=== PATIENT | female | born 1995 | race Caucasian/White ===

== ENCOUNTER 2022-12-28 08:54 | Outpatient (OUT) | payer OTHER, SELFPAY | END 2022-12-28 08:55 | disposition home or self-care (01) | LOC: PST 08:59 | PROVIDERS: Visit Provider Obstetrics & Gynecology | DX: Z01.818 Encounter for other preprocedural examination (principal); N92.0 Excessive and frequent menstruation with regular cycle; N93.9 Abnormal uterine and vaginal bleeding, unspecified; R10.2 Pelvic and perineal pain ==

== ENCOUNTER 2023-01-06 08:17 | Day surgery (SDC) | payer OTHER, SELFPAY ==
[2022-12-28 09:27] VITALS: BP 99/67; PULSE 72; RESP 20; TEMP 36.4; O2SAT 100; BMI 43.2
[2023-01-06] VITALS (8 sets, daily range): BP systolic 111–143; BP diastolic 68–83; PULSE 51–97; RESP 10–18; TEMP 36–36.3; O2SAT 95–100
[2023-01-06 08:50] LABS: Basophils Percent Auto 0.3 % (0.2-2.0); Eosinophils Percent Auto 0.4 % (0.9-7.0); Hematocrit 36.9 % (36.0-48.0); Hemoglobin 11.5 g/dL (12.0-16.0); Immature Granulocytes Abs Auto 0.02 10^3/uL (0.00-0.03); Immature Granulocytes Pct Auto 0.3 % (0.0-0.5); Lymphocytes Absolute Auto 2.1 10^3/uL (1.2-3.8); Lymphocytes Percent Auto 27.9 % (20.5-60.0); Mean Corpuscular HGB Conc 31.2 g/dL (29.9-35.2); Mean Corpuscular Hemoglobin 27.3 pg (26.7-34.0); Mean Corpuscular Volume 87.6 fL (81.0-99.0); Mean Platelet Volume 11.5 fL (9.5-13.5); Monocytes Absolute Auto 0.6 10^3/uL (0.3-0.8); Monocytes Percent Auto 7.6 % (1.7-12.0); Neutrophils Absolute Auto 4.8 10^3/uL (1.4-6.5); Neutrophils Percent Auto 63.5 % (43.0-75.0); Platelet Count 204 10^3/uL (150-450); Red Blood Count 4.21 10^6/uL (4.20-5.40); Red Cell Distribution Width 13.8 % (11.0-15.0); White Blood Count 7.5 10^3/uL (4.0-11.0)
[2023-01-06] MEDS: LACTATED RINGER'S SOLUTION 1,000 ML 50 ML IV (08:52)
[2023-01-06 08:54] LABS: HCG Quantitative <1 mIU/mL
--- NOTE | 2023-01-06 12:42 | PM.ONB ---
Brief Operative Note Date of procedure: 01/06/23 Pre-op diagnosis: menorrhagia Post-op diagnosis: same as pre-op Procedure: NAME OF PROCEDURE:[ yessi endometrial ablation with hysteroscopy] PROCEDURE: The patient was taken back to the OR where she was prepped and draped in the normal sterile fashion after being placed in the dorsal lithotomy position, after being placed under general anesthesia without difficulty. The anterior lip was grasped with a single tooth tenaculum. The patient was then gently sounds. The patient was gently sounded using Hegar dilators and the hysteroscope was passed through the cervix into the uterus where both ostia were seen. No gross evidence of polyps, fibroids or malignancy. A weighted speculum was placed in the patient?s vagina, the anterior tip of the cervix was identified and grasped with a single tooth tenaculum. The patient was gently sounded to roughly 10 cm. The cervical length was noted to be 5 cm. The Yessi ablation apparatus was set to approximately 5 in length. This was placed in through the cervix and into the uterus. After the seal was tested, at that time the total ablation of 120 seconds was performed with the Yessi without difficulty. All instruments were removed from the vagina. Anesthesia: ABEBA Surgeon: Jonah Roque Estimated blood loss (mL): 5 Pathology: none sent Condition: stable Disposition: PACU
== END 2023-01-06 13:05 | disposition home or self-care (01) ==
PROVIDERS: Visit Provider Obstetrics & Gynecology
PROC: (CPT 952; principal; 2023-01-06 10:25)
DX: N92.0 Excessive and frequent menstruation with regular cycle (principal); N93.9 Abnormal uterine and vaginal bleeding, unspecified; R10.2 Pelvic and perineal pain; F41.9 Anxiety disorder, unspecified; F31.89 Other bipolar disorder; E66.01 Morbid (severe) obesity due to excess calories; Z68.41 Body mass index [BMI] 40.0-44.9, adult
CPT/HCPCS: 58563; 36415; 84702; 85025; J2704

== ENCOUNTER 2023-06-21 19:44 | Outpatient (REF) | payer OTHER, SELFPAY ==
[2023-06-26 14:12] LABS: Age Gdln ACOG Testing Note (.); IGP, rfx Aptima HPV ASCU Note (.)
== END 2023-06-21 19:45 | disposition home or self-care (01) ==
LOC: LAB 19:44
PROVIDERS: Visit Provider Physician Assistant
DX: Z01.419 Encounter for gynecological examination (general) (routine) without abnormal findings (principal)
CPT/HCPCS: G0145

== ENCOUNTER 2023-08-03 09:41 | Outpatient (OUT) | payer OTHER, SELFPAY ==
--- NOTE | 2023-08-03 10:25 | P.GSHP_ITS ---
History of Present Illness History of Present Illness Chief complaint: menorrhagia, pelvic pain Narrative: He presents for preadmission testing. The patient reports heavy painful periods with abdominal pain. The patient states she had an ablation done in January 2023 with no relief of her symptoms area she denies nausea, vomiting, fever, dysuria, or any other complaints. Review of Systems ROS Narrative REVIEW OF SYSTEMS: Negative except as stated in HPI, ten or more systems reviewed. Constitutional: No fever , chills, weakness ENT: No sore throat or epistaxis Cardiovascular: No edema, chest pain, palpitations, or activity intolerance Respiratory: No shortness of breath, cough, or wheezing Musculoskeletal: No joint pain or swelling Genitourinary: No dysuria or hematuria Neurological: No numbness, tingling, weakness, or headache Psychiatric: No mood changes [facility] Medical History (Updated 08/03/23 @ 10:28 by Carlene Goel NP) History of admission to inpatient psychiatry department (~07/2023) ?Z86.59 - Personal history of other mental and behavioral disorders (ICD-10) Dysmenorrhea ?N94.6 - Dysmenorrhea, unspecified (ICD-10) Dyspareunia Pelvic pain ?R10.2 - Pelvic and perineal pain (ICD-10) Menorrhagia ?N92.0 - Excessive and frequent menstruation with regular cycle (ICD-10) Rh negative status during ?O26.899 - Other specified related conditions, unspecified trimester (ICD-10) ?Z67.91 - Unspecified blood type, rh negative (ICD-10) Anemia ?D64.9 - Anemia, unspecified (ICD-10) Panic attacks ?F41.0 - Panic disorder [episodic paroxysmal anxiety] (ICD-10) PTSD (post-traumatic stress disorder) ?F43.10 - Post-traumatic stress disorder, unspecified (ICD-10) Insomnia ?G47.00 - Insomnia, unspecified (ICD-10) Bipolar disorder ?F31.9 - Bipolar disorder, unspecified (ICD-10) Depression ?F32.A - Depression, unspecified (ICD-10) Anxiety ?F41.9 - Anxiety disorder, unspecified (ICD-10) Migraine ?G43.909 - Migraine, unspecified, not intractable, without status migrainosus (ICD-10) Closed head injury ?S09.90XA - Unspecified injury of head, initial encounter (ICD-10) Seizures ?R56.9 - Unspecified convulsions (ICD-10) Surgical History (Updated 08/03/23 @ 10:08 by Carlene Goel NP) History of hysteroscopy (01/06/23) ?Z98.890 - Other specified postprocedural states (ICD-10) History of wisdom tooth extraction ?K08.409 - Partial loss of teeth, unspecified cause, unspecified class (ICD- 10) History of tonsillectomy ?Z90.89 - Acquired absence of other organs (ICD-10) History of tubal ligation ?Z98.51 - Tubal ligation status (ICD-10) Family History (Updated 12/28/22 @ 09:22 by Carlene Goel NP) Other Family history of breast cancer Family history of colon cancer Family history of diabetes mellitus Family history of heart disease Family history of hypertension Family history of myocardial infarction Family history of seizures Family history of stroke Social History (Updated 08/03/23 @ 10:11 by Carlene Goel NP) Within the past year, how often did you have a drink containing alcohol: monthly or less Smoking status: Former smoker Non-prescribed substance use: denies use Highest level of school completed/degree received: high school graduate Meds Home Medications and Allergies Home Medications ?Medication ?Instructions ?Recorded ?Confirmed ?Type desvenlafaxine succinate 25 mg 25 mg PO Q24H 08/03/23 08/03/23 History tablet,extended release 24 hr valacyclovir 500 mg tablet 500 mg PO DAILY 08/03/23 08/03/23 History Allergies Allergy/AdvReac Type Severity Reaction Status Date / Time No Known Drug Allergies Allergy Verified 12/28/22 09:14 Exam Narrative Exam Narrative: Constitutional: Awake, alert, comfortable, well-appearing, nontoxic, interactive, vital signs as charted Head: Normocephalic, atraumatic Neck: Supple, normal appearance, normal range of motion, no meningeal signs, no lymphadenopathy Respiratory: No respiratory distress, breath sounds clear Cardiovascular: Regular rate and rhythm, strong and regular heart tones Abdomen: Nontender, normal bowel sounds, soft, no CVA tenderness Musculoskeletal: Normal gait, no swelling or edema Skin: No rashes or induration, no lesions, only visible skin inspected Neuro: No neurological deficits, normal sensation Psychiatric: Oriented ?3, normal affect Assessment and Plan Assessment and Plan (1) Menorrhagia: (2) Pelvic pain: (3) Dyspareunia: (4) Dysmenorrhea: Plan Robot assisted laparoscopic hysterectomy, possible exploratory laparotomy, possible bilateral salpingo-oophorectomy, possible cystoscopy scheduled with Dr. Roque 08/28/2023.
[2023-08-03 10:33] LABS: Basophils Percent Auto 0.5 % (0.2-2.0); Eosinophils Absolute Auto 0.1 10^3/uL (0.0-0.7); Eosinophils Percent Auto 0.8 % (0.9-7.0); Hematocrit 38.7 % (36.0-48.0); Hemoglobin 12.2 g/dL (12.0-16.0); Immature Granulocytes Abs Auto 0.01 10^3/uL (0.00-0.03); Immature Granulocytes Pct Auto 0.2 % (0.0-0.5); Lymphocytes Absolute Auto 1.9 10^3/uL (1.2-3.8); Lymphocytes Percent Auto 29.1 % (20.5-60.0); Mean Corpuscular HGB Conc 31.5 g/dL (29.9-35.2); Mean Platelet Volume 11.5 fL (9.5-13.5); Monocytes Absolute Auto 0.5 10^3/uL (0.3-0.8); Neutrophils Absolute Auto 4.1 10^3/uL (1.4-6.5); Neutrophils Percent Auto 62.4 % (43.0-75.0); Platelet Count 217 10^3/uL (150-450); Red Blood Count 4.35 10^6/uL (4.20-5.40); Red Cell Distribution Width 12.8 % (11.0-15.0); White Blood Count 6.6 10^3/uL (4.0-11.0)
[2023-08-03 10:42] LABS: INR 1.03; Partial Thromboplastin Time 29.5 sec (22.3-36.2); Prothrombin Time 10.9 sec (9.0-11.6)
[2023-08-03 11:57] LABS: Alanine Aminotransferase 22 U/L (14-59); Albumin Level 3.9 g/dL (3.4-5.0); Alkaline Phosphatase 83 U/L (46-116); Anion Gap 13.5; Aspartate Amino Transferase 12 U/L (15-37); BUN Creatinine Ratio 13.8; Bilirubin Direct 0.1 mg/dL (0.0-0.2); Bilirubin Total 0.5 mg/dL (0.2-1.0); Carbon Dioxide 28.5 mmol/L (21.0-32.0); Chloride 101 mmol/L (98-107); Estimated GFR (African America >60 (>=60); Estimated GFR (Non-African Ame >60 (>=60); Globulin 4.1 g/dL; Glucose 78 mg/dL (74-106); Sodium 139 mmol/L (136-145)
== END 2023-08-03 09:42 | disposition home or self-care (01) ==
LOC: PST 09:42
PROVIDERS: Visit Provider Obstetrics & Gynecology
DX: Z01.812 Encounter for preprocedural laboratory examination (principal); Z01.818 Encounter for other preprocedural examination; N92.0 Excessive and frequent menstruation with regular cycle; R10.2 Pelvic and perineal pain; N94.6 Dysmenorrhea, unspecified; N94.10 Unspecified dyspareunia
CPT/HCPCS: 80053; 80076; 85025; 85610; 85730; G0463

== ENCOUNTER 2023-08-24 06:36 | Outpatient (OUT) | payer OTHER, SELFPAY ==
--- OUTSIDE RECORDS SUMMARY | 2023-08-24 06:39 | XMS_ITS | CCD ---
Author Organization [facility] Care Team Providers Care Physical Therapist Center Manager Name Role Phone NISHA, DR LORENZ Primary Care Unavailable DAWOOD, DR BENTON Admitting Unavailable KARASIK, DR BENTON Consulting Unavailable KARASIK, DR BENTON Attending Unavailable KARASIK, DR BENTON Attending Unavailable MIS, DR LORENZ Primary Care Unavailable DAWOOD, DR BENTON Admitting Unavailable KARASIK, DR BENTON Consulting Unavailable Catherine Raygoza Unavailable Unavailable Primary Care Provider Unavailabl PRISCILLA Martinez Attending Unavailable MIRANDA ARCOS Attending Unavailable PRISCILLA ROQUE Attending Unavailable NO PCP, NO PCP Primary Care Unavailable HERNESTO CASEY Attending Unavailable NO PCP, NO PCP Primary Care Unavailable SUSIE SENA Attending Unavailable NO FAMILY, PHYSICIAN Primary Care Provider Unava ilable MD Munir Torrez Admit Provider MD Munir Torrez Attending Provider [phone] Munir Torrez Admitting Unavailab le NO FAMILY, PHYSICIAN Primary Care Unavailable Ryan Quinones Attending Unavailable Munir Torrez Admitting Unavailab Munir Hartman Attending Unavailab le NO FAMILY, PHYSICIAN Primary Care Unavailable Medications Current Medications Medication Drug Class(es) Dates Sig (Normalized) Sig (Original) [id number] 200 actuat albuterol 0.09 mg/actuat metered dose inhaler (1 source) beta2-Adrenergic Agonist Start: 02-20-2023 take 2 puff(s) by inhalation four times daily as needed Albuterol Sulfate HFA 108 (90 Base) MCG/ACT 2 puffs Inhalation 4 times a day prn Feb, Active benzonatate 200 mg oral capsule (1 source) Non-narcotic Antitussive Start: 02-20-2023 take 1 capsule by mouth every eight hours Benzonatate 200 MG 1 capsule Orally Three times a day Feb, Active 24 hr desvenlafaxine succinate 25 mg extended release oral tablet (1 source) Serotonin and Norepinephrine Reuptake Inhibitor Start: 07-25-2023 take 25 mg by mouth once daily Desvenlafaxine Succinate Active 25 MG PO Daily 30 July 25, 2023 12:00am predniSONE 20 mg oral tablet (1 source) Start: 02-20-2023 take 1 tablet by mouth every twelve hours predniSONE 20 MG 1 tablet Orally bid for 5 day(s) Feb, Active valACYclovir 500 mg oral tablet (4 sources) Herpesvirus Nucleoside Analog DNA Polymerase Inhibitor, Herpes Simplex Virus Nucleoside Analog DNA Polymerase Inhibitor, Herpes Zoster Virus Nucleoside Analog DNA Polymerase Inhibitor Start: 05-30-2023 End: 11-26-2023 take 500 mg by mouth once daily Valacyclovir Active 500 MG PO Daily July 23, 2023 12:00am take 1 tablet by monika th every twenty-four hours valACYclovir HCl 500 MG 1 tablet Orally Once a day Active Problems Active Problems Problem Classification Problem Date Documented Da te Episodic/Chronic Anxiety disorders (2 sources) Anxiety disorder; Translations: [Anxiety disorder, unspecified] Onset: 10-11-2017 12-07-2022 Chronic Mood disorders (5 sources) Mixed bipolar affective disorder; Translations: [Bipolar disorder, current episode mixed, unspecified] Onset: 10-11-2017 12-07-2022 Chronic Mood disorders (1 source) Mood disorders; Translations: [Depression, unspecified] Onset: 07-23-2023 Other female genital disorders (1 source) Abnormal uterine and vaginal bleeding, unspecified; Translations: [Abnormal uterine and vaginal bleeding, unspecified] Onset: 05-10-2023 Chronic Other female genital disorders (1 source) Vaginal bleeding Onset: 05-10-2023 Chronic Other upper respiratory infections (2 sources) Acute pharyngitis, unspecified; Translations: [Acute sinusitis, unspecified] Episodic Suicide and intentional self-inflicted injury (1 source) Suicidal ideations; Translations: [Suicidal ideations] Onset: 07-22-2023 Episodic Unclassified (1 source) Suicidal Onset: 07-22-2023 Unclassified (1 source) MENTAL HEALTH ISSUES Onset: 07-22-2023 Past or Other Problems Problem Classification Problem Date Documented Date Episodic/Chronic Immunizations and screening for infectious disease (1 source) Encounter for screening for human papillomavirus (HPV); Translations: [ENC SCREENING HUMAN PAPILLOMAVIRUS] Onset: 01-29-2021 Episodic Other screening for suspected conditions (not mental disorders or infectious disease) (4 sources) Encounter for screening for malignant neoplasm of cervix; Translations: [ENC SCREENING MALIG NEOPLASM CERV] Onset: 08-10-2021 Episodic Unclassified (1 source) Suspected COVID-19 virus infection Z20.822 Results Test Name Value Interpretation Reference Range Facility Cholesterol [Mass/volume] in Serum or PlasmaOrdered By: Munir Torrez on 07-23-2023 Cholesterol [Mass/Vol] 162 mg/dL Normal 140-200 [facility] Comment on above: Chol less than 200 m g/dl low riskChol 201-239 mg/dl borderline riskChol 240 mg/dl and greater high risk Order Comment: FASTI NG Y Result Comment: Chol less than 200 mg/dl low risk Chol 201-239 mg/dl borderline risk Chol 240 mg/dl and greater high risk Performed By: #### V [id number], LIPID, TSH3 wRFLX #### [address] Cholesterol in LDL Calc [Mas s/Vol]Ordered By: Munir Torrez on 07-23-2023 Cholesterol in LDL [Mass/Vol] 100 mg/dL 0-100 [facility] Comment on above: LDL ATP III CLASSIFI CATIONLDL less than 100 mg/dL OptimalLDL 100-129 mg/dL Near or above optimalLDL 130-159 mg/dL Borderline highLDL 160-189 mg/dL HighLDL greater than 189 mg/dL Very high Cholesterol in VLDL Calc [Ma ss/Vol]Ordered By: Munir Torrez on 07-23-2023 Cholesterol in VLDL [Mass/Vol] 17 mg/dL [facility] ECG 12 lead ECGon 07-23-2023 ECG 12 lead ECG [facility] [address] [place] [address] Electrocardiograph Report Signed Patient: Bel Lane MR#: [id number] : 1995 Acct:[id number] Age/Sex: 28 / F ADM Date: 07/23/23 Loc: Room: [address] [place] [address] Type: ADM IN Attending Dr: Munir Torrez MD Ordering Provider: Munir Torrez MD Date of Service: 07/23/23 ECG/ECG 12 lead ECG: antipsychotic therapy Copies to: Test Reason : Blood Pressure : / mmHG Vent. Rate : 076 BPM Atrial Rate : 076 BPM P-R Int : 110 ms QRS Dur : 094 ms QT Int : 394 ms P-R-T Axes : 039 053 041 degrees QTc Int : 443 ms Sinus rhythm with short AL Borderline ECG When compared with ECG of 23-JUL-2023 13:36, (Unconfirmed) Nonspecific T wave abnormality now evident in Anterior leads Confirmed by Raymond Rico ([id number]) on 07/24/2023 2:24:13 PM Referred By: Electronically Signed By:Raymond Rico Transcribed By: MUS Signed By Raymond Rico MD 07/24/23 1424 Normal [facility] Lipid Panelon 07-23-2023 LDL Cholesterol,Calculated 100 mg/dL Normal 0-100 [facility] Comment on above: Order Comment: ERVIN Arora Result Comment: LDL ATP III CLASSIFICATION LDL less than 100 mg/dL Optimal LDL 100-129 mg/dL Near or above optimal LDL 130-159 mg/dL Borderline high LDL 160-189 mg/dL High LDL greater than 189 mg/dL Very high Performed By: #### V [id number], LIPID, TSH3 wRFLX #### [facility] [address] Triglyceride w/Reflex 88 mg/dL Normal 0-149 [facility] Comment on above: Order Comment: ERVIN DIAZ Y Result Comment: TRIG ATP III CLASSIFICATION TRIG less than 150 mg/dL Normal TRIG 150-199 mg/dL Borderline high TRIG 200-500 mg/dL High TRIG greater than 500 mg/dL Very high Standard traceable to the Center for Disease Conrtrol and Prevention (CDC) test method. Performed By: #### V [id number], LIPID, TSH3 wRFLX #### [facility] [address] VLDL CHOLESTEROL 17 mg/dL Normal [facility] Comment on above: Order Comment: FASTI NG Y Performed By: #### V [id number], LIPID, TSH3 wRFLX #### [address] Serum or plasma high density lipoprotein (HDL) cholesterol measurementOrdered By: Munir Torrez on 07-23-2023 Cholesterol in HDL [Mass/Vol] 44 mg/dL Normal 23-92 [facility] Comment on above: HDL CHOL ATP-III CLA SSIFICATION Cardiovascular RiskHDL > or equal to 60 mg/dL LOWHDL < 40 mg/dL HIGH Order Comment: FASTI NG Y Result Comment: HDL CHOL ATP-III CLASSIFICATION Cardiovascular Risk HDL > or equal to 60 mg/dL LOW HDL < 40 mg/dL HIGH Performed By: #### V [id number], LIPID, TSH3 wRFLX #### [address] Serum or plasma total choles terol/high density lipoprotein (HDL) cholesterol mass ratOrdered By: Munir Torrez on 07-23-2023 Cholesterol.total/Chol esterol in HDL [Mass ratio] 3.7 {ratio} Normal <5.0 [facility] Comment on above: Order Comment: FASTI NG Y Performed By: #### V [id number], LIPID, TSH3 wRFLX #### [address] Thyroid Stim Hormone w/Rflxo n 07-23-2023 Thyroid Stim Hormone w/Rflx 1.60 u[iU]/mL Normal 0.45-5.33 [facility] Comment on above: Order Comment: FASTI NG Y Performed By: #### V [id number], LIPID, TSH3 wRFLX #### [facility] [address] [place] [id number] [facility] Thyrotropin [Units/volume] i n Serum or PlasmaOrdered By: Munir Torrez on 07-23-2023 TSH Qn 1.60 m[IU]/L 0.45-5.33 [facility] Triglyceride [Mass/volume] i n Serum or PlasmaOrdered By: Munir Torrez on 07-23-2023 Triglyceride [Mass/Vol] 88 mg/dL 0-149 [facility] Comment on above: TRIG ATP III CLASSIF ICATIONTRIG less than 150 mg/dL NormalTRIG 150-199 mg/dL Borderline highTRIG 200-500 mg/dL High TRIG greater than 500 mg/dL Very highStandard traceable to the Center for Disease Conrtrol and Prevention (CDC) test method. Vitamin D 25 Hydroxy Totalon 07-23-2023 Vitamin D 25 Hydroxy Total 16.1 ng/mL Low 30-100 [facility] Comment on above: Order Comment: ERVIN Arora Result Comment: MALIHA MIN D STATUS 25(OH)VITAMIN D RANGE (ng/mL) Deficient <20 Insufficient 20 to <30 Sufficient 30 to 100 Reference: Lisa Thrasher, Estrella TORRES, et al. Evaluation,treatment, and prevention of vitamin D deficiency; an Endocrine Society clinical practice guideline. JCEM. 2010; 96(7):1911-30. PERFORMED BY: [place] [address] PATHOLOGIST [employer] BART WHITFIELD M.D. Performed By: #### V [id number], LIPID, TSH3 wRFLX #### [place] [id number] [facility] Vitamin D+Metabolites [Mass/ volume] in Serum or PlasmaOrdered By: Munir Torrez on 07-23-2023 Vitamin D+Metabolites [Mass/Vol] 16.1 ng/mL 30-100 [facility] Comment on above: VITAMIN D STATUS 25( [place])VITAMIN D RANGE (ng/mL) Deficient <20 Insufficient 20 to <30Sufficient 30 to 100Reference: Lisa Thrasher, Estrella TORRES, et al. Evaluation,treatment, and prevention of vitamin D deficiency; an Endocrine Society clinical practice guideline. JCEM. 2010; 96(7):1911-30. ACETAMINOPHENon 07-22-2023 Acetaminophen [Mass/Vol] 4.9 ug/mL Low 10.0-30.0 [facility] Comment on above: Result Comment: Refe rence ranges are for therapeutic limits. Performed By: #### C FREDRICK, 3298-7, 5643-2, [facility], 4024-6, THYR #### [facility] ([id number]) [address] [place] [address] 82009 CBC AND AUTO DIFFon 07-22-19 ABSOLUTE BASOPHIL 0.0 X10E9/L Normal 0.0-0.2 [facility] Comment on above: Performed By: #### Malachi ALCALA, [facility]8-7, 5643-2, [facility], [facility], THYR #### [facility] ([id number]) [address] [place] [address] 27694 ABSOLUTE NEUTROPHIL 9.1 X10E9/L High 1.5-6.6 [facility] Comment on above: Performed By: #### Malachi ALCALA, 3298-7, 5643-2, [facility], 4026, THYR #### [facility] ([id number]) [address] [place] [address] 29487 Basophils/100 WBC (Bld) 0.3 % Normal [facility] Comment on above: Performed By: #### C BCA, 3298-7, 5643-2, [facility], 4024-6, THYR #### [facility] ([id number]) [address] [place] [address] 57570 Eosinophils (Bld) [#/Vol] 0.0 10*3/uL Normal 0.0-0.4 [facility] Comment on above: Performed By: #### Malachi ALCALA, 3298-7, 5643-2, [facility], 4024-6, THYR #### [facility] ([id number]) [address] [place] [address] 14616 Eosinophils/100 WBC (Bld) 0.4 % Normal [facility] Comment on above: Performed By: #### C FREDRICK, 3298-7, 5643-2, CMP, 4024-6, THYR #### [facility] ([id number]) [address] [place] [address] 08078 Erythrocyte distribution width (RBC) [Ratio] 13.6 % Normal 11.5-15.0 [facility] Comment on above: Performed By: #### C FREDRICK, 3297-7, 5643-2, CMP, 4024-6, THYR #### [facility] ([id number]) [address] [place] [address] 53167 Hematocrit (Bld) [Volume fraction] 37.1 % Normal 35-47 [facility] Comment on above: Performed By: #### C FREDRICK, 3297-7, 5643-2, CMP, 4024-6, THYR #### [facility] ([id number]) [address] [place] [address] 63512 Hemoglobin (Bld) [Mass/Vol] 12.3 g/dL Normal 11.7-15.5 [facility] Comment on above: Performed By: #### C FREDRICK, 3297-7, 5643-2, CMP, 4024-6, THYR #### [facility] ([id number]) [address] [place] [address] 23824 Lymphocytes (Bld) [#/Vol] 1.9 10*3/uL Normal 1.0-3.5 [facility] Comment on above: Performed By: #### C FREDRICK, 3298-7, 5643-2, CMP, 4024-6, THYR #### [facility] ([id number]) [address] [place] [address] 97886 Lymphocytes/100 WBC (Bld) 16.0 % Normal [facility] Comment on above: Performed By: #### Malachi ALCALA, 8-7, 5643-2, CMP, 4024-6, THYR #### [facility] ([id number]) [address] [place] [address] 00563 MCH (RBC) [Entitic mass] 28.1 pg Normal 27-34 [facility] Comment on above: Performed By: #### Malachi ALCALA, 3297-7, 5643-2, CMP, 4024-6, THYR #### [facility] ([id number]) [address] [place] [address] 17280 MCHC (RBC) [Mass/Vol] 33.1 g/dL Normal 32-36 [facility] Comment on above: Performed By: #### Malachi ALCALA, 3297, 5643-2, CMP, 4024-6, THYR #### [facility] ([id number]) [address] [place] [address] 51532 MCV (RBC) [Entitic vol] 85 fL Normal 80-100 [facility] Comment on above: Performed By: #### Malachi ALCALA, 7, 5643-2, CMP, 4024-6, THYR #### [facility] ([id number]) [address] [place] [address] 25638 Monocytes (Bld) [#/Vol] 0.5 10*3/uL Normal 0-0.9 [facility] Comment on above: Performed By: #### Malachi ALCALA, 3297-7, 5643-2, CMP, 4024-6, THYR #### [facility] ([id number]) [address] [place] [address] 29411 Monocytes/100 WBC (Bld) 4.5 % Normal [facility] Comment on above: Performed By: #### Malachi ALCALA, 3297-7, 5643-2, CMP, 4024-6, THYR #### [facility] ([id number]) [address] [place] [address] 49017 Neutrophils/100 WBC (Bld) 78.8 % Normal [facility] Comment on above: Performed By: #### Malachi ALCALA, 3298-7, 5643-2, CMP, 4024-6, THYR #### [facility] ([id number]) [address] [place] [address] 69407 Platelet mean volume (Bld) [Entitic vol] 9.8 fL Normal 7-12 [facility] Comment on above: Performed By: #### Malachi ALCALA, 3297-7, 5643-2, CMP, 4024-6, THYR #### [facility] ([id number]) [address] [place] [address] 47917 Platelets (Bld) [#/Vol] 211 10*3/uL Normal 150-450 [facility] Comment on above: Performed By: #### Malachi ALCALA, 3297-7, 5643-2, CMP, 4024-6, THYR #### [facility] ([id number]) [address] [place] [address] 42739 RBC COUNT 4.37 X10E12/L Normal 3.80-5.20 [facility] Comment on above: Performed By: #### Malachi ALCALA, 3297-7, 5643-2, CMP, 4024-6, THYR #### [facility] ([id number]) [address] [place] [address] 83333 WBC (Bld) [#/Vol] 11.6 10*3/uL High 4.0-11.0 [facility] Comment on above: Performed By: #### Malachi ALCALA, 3298-7, 5643-2, CMP, 4024-6, THYR #### [facility] ([id number]) [address] [place] [address] 07284 COMPREHENSIVE METABOLIC PANE Yuriy 07-22-2023 Albumin [Mass/Vol] 4.7 g/dL Normal 3.2-5.3 [facility] Comment on above: Performed By: #### 2 106-3 #### [facility] ([id number]) [address] [place] [address] 86219 ALP [Catalytic activity/Vol] 66 U/L Normal 39-130 [facility] Comment on above: Performed By: #### 2 106-3 #### [facility] ([id number]) [address] [place] [address] 81961 ALT [Catalytic activity/Vol] 19 U/L Normal 0-31 [facility] Comment on above: Performed By: #### 2 106-3 #### [facility] ([id number]) [address] [place] [address] 83617 Anion gap [Moles/Vol] 8 mmol/L Normal 5-15 [facility] Comment on above: Performed By: #### 2 106-3 #### [facility] ([id number]) [address] [place] [address] 30070 AST [Catalytic activity/Vol] 21 U/L Normal 0-41 [facility] Comment on above: Performed By: #### 2 106-3 #### [facility] ([id number]) [address] [place] [address] 94880 Bilirubin [Mass/Vol] 0.5 mg/dL Normal 0.3-1.2 [facility] Comment on above: Performed By: #### 2 106-3 #### [facility] ([id number]) [address] [place] [address] 44745 Calcium [Mass/Vol] 9.2 mg/dL Normal 8.5-10.5 [facility] Comment on above: Performed By: #### 2 106-3 #### [facility] ([id number]) [address] [place] [address] 39851 Chloride [Moles/Vol] 106 mmol/L Normal 98-109 [facility] Comment on above: Performed By: #### 2 106-3 #### [facility] ([id number]) [address] [place] [address] 92880 CO2 [Moles/Vol] 25 mmol/L Normal 22-32 [facility] Comment on above: Performed By: #### 2 106-3 #### [facility] ([id number]) [address] [place] [address] 32730 Creatinine [Mass/Vol] 0.71 mg/dL Normal 0.40-1.00 [facility] Comment on above: Result Comment: METH OD TRACEABLE TO IDMS STANDARD Performed By: #### 2 106-3 #### [facility] ([id number]) [address] [place] [address] [place] [address] eGFR (CKD-EPI) NON-RACE DEPENDENT >90 Normal >59 [facility] Comment on above: Result Comment: Reported eGFR is based on the CKD-EPI 2020 equation that does not use a race coefficient. Performed By: #### 2 106-3 #### [facility] ([id number]) [address] [place] [address] 36415 Glucose [Mass/Vol] 92 mg/dL Normal 65-99 [facility] Comment on above: Performed By: #### 2 106-3 #### [facility] ([id number]) [address] [place] [address] 13071 Potassium [Moles/Vol] 3.7 mmol/L Normal 3.5-5.0 [facility] Comment on above: Performed By: #### 2 106-3 #### [facility] ([id number]) [address] [place] [address] 54149 Protein [Mass/Vol] 8.3 g/dL High 6.0-8.0 [facility] Comment on above: Performed By: #### 2 106-3 #### [facility] ([id number]) [address] [place] [address] 17954 Sodium [Moles/Vol] 139 mmol/L Normal 134-146 [facility] Comment on above: Performed By: #### 2 106-3 #### [facility] ([id number]) [address] [place] [address] 54368 Urea nitrogen [Mass/Vol] 12 mg/dL Normal 5-23 [facility] Comment on above: Performed By: #### 2 106-3 #### [facility] ([id number]) [address] [place] [address] 90773 DRUG SCREEN, URINEon 024 AMPHETAMINE/METHAMP Negative Normal NEG [facility] Comment on above: Result Comment: AMPH /METH screening cut off = 1000 ng/mL Performed By: #### 2 106-3 #### [facility] ([id number]) [address] [place] [address] 54933 BARBITURATES Negative Normal NEG [facility] Comment on above: Result Comment: Alicia iturates screening cut off value = 200 ng/mL Performed By: #### 2 106-3 #### [facility] ([id number]) [address] [place] [address] 60890 BENZODIAZEPINES Positive Abnormal NEG [facility] Comment on above: Result Comment: Conf irmation available upon request. Benzodiazepines screening cut off value = 200 ng/mL Performed By: #### 2 106-3 #### [facility] ([id number]) [address] [place] [address] 53535 CANNABINOIDS Positive Abnormal NEG [facility] Comment on above: Result Comment: Conf irmation available upon request. Cannabinoids/THC screening cut off value = 50 ng/mL Performed By: #### 2 106-3 #### [facility] ([id number]) [address] [place] [address] 92905 COCAINE METABOLITE Negative Normal NEG [facility] Comment on above: Result Comment: Coca ine screening cut off value = 300 ng/mL Performed By: #### 2 106-3 #### [facility] ([id number]) [address] [place] [address] 27902 ECSTASY Negative Normal NEG [facility] Comment on above: Result Comment: Ecst asy screening cut off value = 500 ng/mL This report is intended for use in clinical monitoring or management of patients. Performed By: #### 2 106-3 #### [facility] ([id number]) [address] [place] [address] 96289 METHADONE Negative Normal NEG [facility] Comment on above: Result Comment: Meth adone screening cut off value = 300 ng/mL. Performed By: #### 2 106-3 #### [facility] ([id number]) [address] [place] [address] 04885 OPIATES Negative Normal NEG [facility] Comment on above: Result Comment: Opia chadwick screening cut off value = 300 ng/mL NOTE: This test is used for the detection of codeine, hydrocodone (>1000 ng/mL), morphine and hydromorphone (>900 ng/mL) in urine. Performed By: #### 2 106-3 #### [facility] ([id number]) [address] [place] [address] [place] [address] OXYCODONE Negative Normal NEG [facility] Comment on above: Result Comment: Oxyc odone screening cut off value = 300 ng/mL NOTE: This test is used for the detection of oxycodone and oxymorphone in urine. Performed By: #### 2 106-3 #### [facility] ([id number]) [address] [place] [address] 40674 PHENCYCLIDINE Negative Normal NEG [facility] Comment on above: Result Comment: Phen cyclidine screening cut off value = 25 ng/mL Performed By: #### 2 106-3 #### [facility] ([id number]) [address] [place] [address] 75135 ETHANOLon 07-22-2023 Ethanol [Mass/Vol] mg/dL Normal 0.00-0.08 [facility] Comment on above: Result Comment: This report is intended for use in clinical monitoring or management of patients. Performed By: #### 2 106-3 #### [facility] ([id number]) [address] [place] [address] 87245 HCG ( test) Ql (U)o n 07-22-2023 Beta HCG ( test) Ql (U) Negative Normal NEG [facility] Comment on above: Performed By: #### 2 106-3 #### [facility] ([id number]) [address] [place] [address] 77472 Salicylates [Mass/Vol]on SALICYLATE <4.0 Normal 2.0-25.0 [facility] Comment on above: Result Comment: Refe rence ranges are for therapeutic limits. Performed By: #### 2 106-3 #### [facility] [place] ([id number]) [address] [place] [address] 87640 THYROID PROFILEon 07-22-2023 Free T4 [Mass/Vol] 0.77 ng/dL Normal 0.61-1.60 [facility] Comment on above: Performed By: #### 2 106-3 #### [facility] ([id number]) [address] [place] [address] 32428 TSH 0.67 uIU/mL Normal 0.49-4.67 [facility] Comment on above: Performed By: #### 2 106-3 #### [facility] ([id number]) [address] [place] [address] 59645 URN MACROSCOPIC NURon 2023 BILIRUBIN BRYAN Negative Normal NEG [facility] Comment on above: Performed By: #### N UM #### [facility] ([id number]) [address] [place] [address] 25275 BLOOD/HGB BRYAN Negative Normal NEG [facility] Comment on above: Performed By: #### N UM #### [facility] ([id number]) [address] [place] [address] 60432 GLUCOSE BRYAN Negative Normal NEG [facility] Comment on above: Performed By: #### N UM #### [facility] ([id number]) [address] [place] [address] 27809 KETONES BRYAN 15 mg/dL Abnormal NEG [facility] Comment on above: Performed By: #### N UM #### [facility] ([id number]) [address] [place] [address] 90596 LEUKOCYTE ESTERASE BRYAN Trace Abnormal NEG Pr [facility] Comment on above: Performed By: #### N UM #### [facility] ([id number]) [address] [place] [address] 75090 NITRITE BRYAN Negative Normal NEG [facility] Comment on above: Performed By: #### N UM #### [facility] ([id number]) [address] [place] [address] 79314 PH BRYAN 6.0 Normal 5.0-8.5 [facility] Comment on above: Performed By: #### N UM #### [facility] ([id number]) [address] [place] [address] 64719 PROTEIN BRYAN Negative Normal NEG [facility] Comment on above: Performed By: #### N UM #### [facility] ([id number]) [address] [place] [address] 61717 SPECIFIC GRAVITY BRYAN 1.025 Normal 1.003-1.035 [facility] Comment on above: Performed By: #### N UM #### [facility] ([id number]) [address] [place] [address] 44542 UROBILINOGEN BRYAN 0.2 eu/dL Normal <1.1 [facility] Comment on above: Performed By: #### N UM #### [facility] ([id number]) [address] [place] [address] 79871 BASIC METABOLIC PANLon 05-11 Anion gap [Moles/Vol] 8 mmol/L Normal 5-15 [facility] Comment on above: Performed By: #### B MP, CBCA, PINR, 05428-2 #### [facility] ([id number]) [address] [place] [address] 24007 Calcium [Mass/Vol] 9.0 mg/dL Normal 8.5-10.5 [facility] Comment on above: Performed By: #### B MP, CBCA, PINR, 05414-1 #### [facility] ([id number]) [address] [place] [address] 98170 Chloride [Moles/Vol] 105 mmol/L Normal 98-109 [facility] Comment on above: Performed By: #### B MP, CBCA, PINR, 89217-4 #### [facility] ([id number]) [address] [place] [address] 25779 CO2 [Moles/Vol] 26 mmol/L Normal 22-32 [facility] Comment on above: Performed By: #### B MP, CBCA, PINR, 71033-8 #### [facility] ([id number]) [address] [place] [address] 60175 Creatinine [Mass/Vol] 0.78 mg/dL Normal 0.40-1.00 [facility] Comment on above: Result Comment: METH OD TRACEABLE TO IDMS STANDARD Performed By: #### B MP, CBCA, PINR, 60928-9 #### [facility] ([id number]) [address] [place] [address] 63734 eGFR (CKD-EPI) NON-RACE DEPENDENT >90 Normal >59 [facility] Comment on above: Result Comment: Reported eGFR is based on the CKD-EPI 2020 equation that does not use a race coefficient. Performed By: #### B MP, CBCA, PINR, 67937-4 #### [facility] ([id number]) [address] [place] [address] 93403 Glucose [Mass/Vol] 103 mg/dL High 65-99 [facility] Comment on above: Performed By: #### B MP, CBCA, PINR, 34743-8 #### [facility] ([id number]) [address] [place] [address] 51147 Potassium [Moles/Vol] 3.4 mmol/L Low 3.5-5.0 [facility] Comment on above: Performed By: #### B MP, CBCA, PINR, 18291-8 #### [facility] ([id number]) [address] [place] [address] 55648 Sodium [Moles/Vol] 139 mmol/L Normal 134-146 [facility] Comment on above: Performed By: #### B MP, CBCA, PINR, 11666-5 #### [facility] ([id number]) [address] [place] [address] 29102 Urea nitrogen [Mass/Vol] 11 mg/dL Normal 5-23 [facility] Comment on above: Performed By: #### B MP, CBCA, PINR, 92178-8 #### [facility] ([id number]) [address] [place] [address] 54509 CBC AND AUTO DIFFon 05-11-19 24 ABSOLUTE BASOPHIL 0.0 X10E9/L Normal 0.0-0.2 [facility] Comment on above: Performed By: #### B MP, CBCA, PINR, 73453-8 #### [facility] ([id number]) [address] [place] [address] 43844 ABSOLUTE NEUTROPHIL 5.5 X10E9/L Normal 1.5-6.6 [facility] Comment on above: Performed By: #### B MP, CBCA, PINR, 32959-6 #### [facility] ([id number]) [address] [place] [address] 30318 Basophils/100 WBC (Bld) 0.3 % Normal [facility] Comment on above: Performed By: #### B MP, CBCA, PINR, 92015-0 #### [facility] ([id number]) [address] [place] [address] 12851 Eosinophils (Bld) [#/Vol] 0.3 10*3/uL Normal 0.0-0.4 [facility] Comment on above: Performed By: #### B MP, CBCA, PINR, 11726-0 #### [facility] ([id number]) [address] [place] [address] 19453 Eosinophils/100 WBC (Bld) 2.9 % Normal [facility] Comment on above: Performed By: #### B MP, CBCA, PINR, 45308-7 #### [facility] ([id number]) [address] [place] [address] 28882 Erythrocyte distribution width (RBC) [Ratio] 14.0 % Normal 11.5-15.0 [facility] Comment on above: Performed By: #### B MP, CBCA, PINR, 41578-4 #### [facility] ([id number]) [address] [place] [address] 67866 Hematocrit (Bld) [Volume fraction] 33.6 % Low 35-47 [facility] Comment on above: Performed By: #### B MP, CBCA, PINR, 48837-9 #### [facility] ([id number]) [address] [place] [address] 20780 Hemoglobin (Bld) [Mass/Vol] 11.3 g/dL Low 11.7-15.5 [facility] Comment on above: Performed By: #### B MP, CBCA, PINR, 60462-0 #### [facility] ([id number]) [address] [place] [address] 54677 Lymphocytes (Bld) [#/Vol] 2.9 10*3/uL Normal 1.0-3.5 [facility] Comment on above: Performed By: #### B MP, CBCA, PINR, 55721-4 #### [facility] ([id number]) [address] [place] [address] 12767 Lymphocytes/100 WBC (Bld) 30.6 % Normal [facility] Comment on above: Performed By: #### B MP, CBCA, PINR, 81456-5 #### [facility] ([id number]) [address] [place] [address] 17568 MCH (RBC) [Entitic mass] 28.3 pg Normal 27-34 [facility] Comment on above: Performed By: #### B MP, CBCA, PINR, 82495-7 #### [facility] ([id number]) [address] [place] [address] 47229 MCHC (RBC) [Mass/Vol] 33.6 g/dL Normal 32-36 [facility] Comment on above: Performed By: #### B MP, CBCA, PINR, 07408-6 #### [facility] ([id number]) [address] [place] [address] 47506 MCV (RBC) [Entitic vol] 84 fL Normal 80-100 [facility] Comment on above: Performed By: #### B MP, CBCA, PINR, 46349-8 #### [facility] ([id number]) [address] [place] [address] 30011 Monocytes (Bld) [#/Vol] 0.7 10*3/uL Normal 0-0.9 [facility] Comment on above: Performed By: #### B MP, CBCA, PINR, 34541-3 #### [facility] ([id number]) [address] [place] [address] 24661 Monocytes/100 WBC (Bld) 7.7 % Normal [facility] Comment on above: Performed By: #### B MP, CBCA, PINR, 87243-1 #### [facility] ([id number]) [address] [place] [address] 27850 Neutrophils/100 WBC (Bld) 58.5 % Normal [facility] Comment on above: Performed By: #### B MP, CBCA, PINR, 85842-1 #### [facility] ([id number]) [address] [place] [address] 99525 Platelet mean volume (Bld) [Entitic vol] 9.9 fL Normal 7-12 [facility] Comment on above: Performed By: #### B MP, CBCA, PINR, 31999-5 #### [facility] ([id number]) [address] [place] [address] 83504 Platelets (Bld) [#/Vol] 210 10*3/uL Normal 150-450 [facility] Comment on above: Performed By: #### B MP, CBCA, PINR, 13467-0 #### [facility] ([id number]) [address] [place] [address] 63949 RBC COUNT 3.99 X10E12/L Normal 3.80-5.20 [facility] Comment on above: Performed By: #### B MP, CBCA, PINR, 01749-6 #### [facility] ([id number]) [address] [place] [address] 31690 WBC (Bld) [#/Vol] 9.4 10*3/uL Normal 4.0-11.0 [facility] Comment on above: Performed By: #### B MP, CBCA, PINR, 40578-9 #### [facility] ([id number]) [address] [place] [address] 50248 HCG ( test) Ql (U)o n 05-11-2023 Beta HCG ( test) Ql (U) Negative Normal NEG [facility] Comment on above: Performed By: #### 2 106-3 #### [facility] ([id number]) [address] [place] [address] 21545 PROTIME AND INRon 05-11-2023 INR Coag (PPP) [Relative time] 1.1 {INR} Normal 0.8-1.1 [facility] Comment on above: Performed By: #### B MP, CBCA, PINR, 97762-6 #### [facility] ([id number]) [address] [place] [address] 57839 PT Coag (PPP) [Time] 12.7 s Normal 9.8-13.2 [facility] Comment on above: Result Comment: NEW REFERENCE RANGE Performed By: #### B MP, CBCA, PINR, 30249-1 #### [facility] ([id number]) [address] [place] [address] 62637 URN MACROSCOPIC NURon 2023 BILIRUBIN BRYAN Negative Normal NEG [facility] Comment on above: Performed By: #### N UM #### [facility] ([id number]) [address] [place] [address] 75500 BLOOD/HGB BRYAN Large Abnormal NEG [facility] Comment on above: Performed By: #### N UM #### [facility] ([id number]) [address] [place] [address] 45717 GLUCOSE BRYAN Negative Normal NEG [facility] Comment on above: Performed By: #### N UM #### [facility] ([id number]) [address] [place] [address] [place] [address] KETONES BRYAN Trace Abnormal NEG [facility] Comment on above: Performed By: #### N UM #### [facility] ([id number]) [address] [place] [address] 07485 LEUKOCYTE ESTERASE BRYAN Negative Normal NEG Pr [facility] Comment on above: Performed By: #### N UM #### [facility] ([id number]) [address] [place] [address] 52778 NITRITE BRYAN Negative Normal NEG [facility] Comment on above: Performed By: #### N UM #### [facility] ([id number]) [address] [place] [address] 49910 PH BRYAN 6.5 Normal 5.0-8.5 [facility] Comment on above: Performed By: #### N UM #### [facility] ([id number]) [address] [place] [address] 21222 PROTEIN BRYAN Negative Normal NEG [facility] Comment on above: Performed By: #### N UM #### [facility] ([id number]) [address] [place] [address] [place] [address] SPECIFIC GRAVITY BRYAN 1.025 Normal 1.003-1.035 [facility] Comment on above: Performed By: #### N UM #### [facility] ([id number]) [address] [place] [address] [place] [address] UROBILINOGEN BRYAN 0.2 eu/dL Normal <1.1 [facility] Comment on above: Performed By: #### N UM #### [facility] ([id number]) [address] [facility] [place] [address] aPTT Coag (PPP) [Time]on aPTT Coag (Bld) [Time] 30 s Normal 26-37 [facility] Comment on above: Result Comment: NEW REFERENCE RANGE Performed By: #### B MP, CBCA, PINR, 00232-6 #### [facility] ([id number]) [address] [facility] [place] [address] COVID + FLU Quick Testingon 02-20-2023 SARS-CoV-2 (COVID-19) RNA TRE+probe Ql (Unsp spec) Negative [employer] [facility] AddThis Other COVID + FLU Quick Testing Negative [facility] Other Quick Strepon 02-20-2023 S. pyogenes Org specific cx Ql (Throat) Negative [employer] [facility] [employer] Other Quick Strep [employer] [facility] [employer] Other PAP ACOG PANEL 2: 21 to 29on 08-17-2021 . . Normal [facility] Comment on above: Performed By: #### 4 [id number] #### [facility] [address] [place] [address] Dr. Luis Thrasher Age Gdln ACOG Testing 21-29 Normal [facility] Comment on above: Performed By: #### 4 [id number] #### [facility] [address] [address] [address] Luis Thrasher DIAGNOSIS: Comment Normal [facility] Comment on above: Result Comment: NEGA TIVE FOR INTRAEPITHELIAL LESION OR MALIGNANCY. PREDOMINANCE OF COCCOBACILLI CONSISTENT WITH SHIFT IN VAGINAL WILMER IS PRESENT. Performed By: #### 4 [id number] #### [facility] [address] [place] [address] Dr. Luis Thrasher Methodology: Comment Normal [facility] Comment on above: Result Comment: This liquid based ThinPrep(R) pap test was screened with the use of an image guided system. Performed By: #### 4 [id number] #### [facility] [address] [place] [address] Dr. Luis Thrasher Note: Comment [facility] Comment on above: Result Comment: The Pap smear is a screening test designed to aid in the detection of premalignant and malignant conditions of the uterine cervix. It is not a diagnostic procedure and should not be used as the sole means of detecting cervical cancer. Both false-positive and false-negative reports do occur. . Performed By: #### 4 [id number] #### [facility] [address] [place] [address] Dr. Luis Thrasher Performed by: Comment Normal [facility] Comment on above: Result Comment: Cori Box, Correctional Corporal (ASCP) Performed By: #### 4 [id number] #### [facility] [address] [place] [address] Dr. Luis Thrasher Reflex Criteria: Comment [facility] Comment on above: Result Comment: The HPV DNA reflex criteria were not met with this specimen result therefore, no HPV testing was performed. . Performed By: #### 4 [id number] #### [facility] [address] [place] [address] Dr. Luis Thrasher Specimen adequacy: Comment Normal [facility] Comment on above: Result Comment: Sati sfactory for evaluation. Endocervical and/or squamous metaplastic cells (endocervical component) are present. Performed By: #### 4 [id number] #### [facility] [address] [place] [address] Dr. Luis Thrasher PAP ACOG PANEL 2: 21 to 29on 02-02-2021 . . Normal [facility] Comment on above: Performed By: #### 4 [id number] #### [facility] [address] [place] [address] Dr. Luis Thrasher Age Gdln ACOG Testing - [facility] Comment on above: Performed By: #### 4 [id number] #### [facility] [address] [place] [address] Dr. Luis Thrasher DIAGNOSIS: Comment Abnormal [facility] Comment on above: Result Comment: EPIT HELIAL CELL ABNORMALITY. ATYPICAL SQUAMOUS CELLS OF UNDETERMINED SIGNIFICANCE (ASC-US). Performed By: #### 4 [id number] #### [facility] [address] [place] [address] Dr. Luis Thrasher Electronically signed by: Comment Normal [facility] Comment on above: Result Comment: Heena Velarde MD, Pathologist Performed By: #### 4 [id number] #### [facility] [address] [place] [address] Dr. Luis Thrasher HPV Aptima Negative Normal Negative [facility] Comment on above: Result Comment: This nucleic acid amplification test detects fourteen high-risk HPV types (16,18,31,33,35,39,45,51,52,56,58,59,66,68) without differentiation. Performed By: #### 4 [id number] #### [facility] [address] [place] [address] Dr. Luis Thrasher Methodology: Comment Normal [facility] Comment on above: Result Comment: This liquid based ThinPrep(R) pap test was screened with the use of an image guided system. Performed By: #### 4 [id number] #### [facility] [address] [place] [address] Dr. Luis Thrasher Note: Comment Normal [facility] Comment on above: Result Comment: The Pap smear is a screening test designed to aid in the detection of premalignant and malignant conditions of the uterine cervix. It is not a diagnostic procedure and should not be used as the sole means of detecting cervical cancer. Both false-positive and false-negative reports do occur. . Performed By: #### 4 [id number] #### [facility] [address] [place] [address] Dr. Luis Thrasher Pathologist Provided ICD10 Comment Normal [facility] Comment on above: Result Comment: [id number]. [id number] Performed By: #### 4 [id number] #### [facility] [address] [place] [address] Dr. Luis Thrasher Performed by: Comment Normal [facility] Comment on above: Result Comment: Miranda Saab, Correctional Corporal (ASCP) Performed By: #### 4 [id number] #### [facility] [address] [place], [place] [address] Dr. Luis Thrasher Recommendation: Comment Abnormal [facility] Comment on above: Result Comment: Sugg est follow up as clinically appropriate. Performed By: #### 4 [id number] #### [facility] [address] [place], [place] [address] Dr. Luis Thrasher Reflex Criteria: Comment Normal [facility] Comment on above: Result Comment: See below for HPV testing results. . Performed By: #### 4 [id number] #### [facility] [address] [place], [place] [address] Dr. Luis Thrasher Specimen adequacy: Comment Normal [facility] Comment on above: Result Comment: Sati sfactory for evaluation. Endocervical and/or squamous metaplastic cells (endocervical component) are present. Performed By: #### 4 [id number] #### [facility] [id number] Luis Thrasher Vital Signs Date Time Vital Sign Value Performing Clinician Facility 07-25-2023 07:30-0400 Body temperature 97.3 [degF] PHYSICIAN NO [facility] 07-25-2023 07:30-0400 Diastolic blood pressure 76 mm[Hg] PHYSICIAN NO [facility] [place] [facility] 07-25-2023 07:30-0400 Heart rate 89 /min PHYSICIAN NO [facility] 07-25-2023 07:30-0400 Respiratory rate 18 /min PHYSICIAN NO [facility] 07-25-2023 07:30-0400 SaO2% (BldA) [Mass fraction] 100 % PHYSICIAN NO [facility] [place] [facility] 07-25-2023 07:30-0400 Systolic blood pressure 109 mm[Hg] PHYSICIAN NO [facility] 07-24-2023 14:28-0400 Body height 162.56 cm PHYSICIAN NO [facility] 07-23-2023 02:24-0400 Body weight 104.32 kg PHYSICIAN NO [facility] 06-21-2023 14:11-0500 Body mass index (BMI) [Ratio] 41.02 kg/m2 Miranda Arcos PA Work Phone: [facility] 06-21-2023 14:11-0500 Body weight 108.41 kg Miranda Arcos PA Work Phone: [facility] 06-21-2023 14:11-0500 Diastolic blood pressure 72 mm[Hg] Miranda Arcos PA Work Phone: [facility] 06-21-2023 14:11-0500 Systolic blood pressure 120 mm[Hg] Miranda Arcos PA Work Phone: [facility] 02-20-2023 09:45-0400 Body height 162.56 cm Catherine Idalmis Other [facility] Other 02-20-2023 09:45-0400 Body mass index (BMI) [Ratio] 41.88 kg/m2 Catherine Idalmis Other [facility] 02-20-2023 09:45-0400 Body temperature 98.2 [degF] Catherine Idalmis Other [facility] Other 02-20-2023 09:45-0400 Body weight 110.68 kg Catherine Galindomond Other [facility] Other 02-20-2023 09:45-0400 Respiratory rate 18 /min Catherine Idalmis Other [facility] Other 02-20-2023 09:45-0400 SaO2% (BldA) [Mass fraction] 96 % Catherine Idalmis Other [facility] Other Encounters Encounter Date Encounter Type Care Provider Facility Start: 07-23-2023 Non-patient / Non-visit PHYSICIAN [facility] Physician [facility] Work Phone: Start: 07-23-2023 End: 07-25-2023 Evaluation and management of inpatient Munir Torrez Facility:[facility] Start: 07-23-2023 End: 07-25-2023 Evaluation and management of inpatient PHYSICIAN NO [facility]ILY [facility] Work Phone: Start: 07-22-2023 End: 07-23-2023 Emergency department patient visit NO PCP NO PCP [facility] Start: 07-22-2023 ambulatory Munir Torrez F acility:[facility] Start: 07-18-2023 End: 07-18-2023 ambulatory PRISCILLA IOANA Not Available Start: 06-21-2023 End: 06-21-2023 ambulatory MIRANDA ARCOS Not Available Start: 06-21-2023 End: 06-21-2023 Patient encounter procedure Miranda ARROYO Work Phone: [facility] Work Phone: Start: 06-21-2023 End: 06-21-2023 Periodic preventive med est patient 18-39 yrs Miranda ARROYO Work Phone: [facility] Comment on above: Well woman exam with routine gynecological exam Start: 05-23-2023 End: 05-23-2023 ambulatory PRISCILLA IOANA Not Available Start: 05-10-2023 End: 05-11-2023 Emergency department patient visit NO PCP NO PCP [facility] Start: 02-20-2023 End: 02-20-2023 ambulatory Catherine Raygoza Other [facility] Other Start: 02-20-2023 Office outpatient ne w 20 minutes Catherine Raygoza [facility] Start: 08-10-2021 End: 08-10-[address] DOCTOR CAMERON Facility:[facility] Start: 01-26-2021 End: 01-26-[address] SERENITY SEAY Facility:[facility] Plan of Treatment Date Care Activity Detail Author Start: 07-25-2023 [facility] Start: 07-23-2023 Hospital admission [facility] Start: 07-18-2023 End: 07-18-2023 Patient encounter procedure 07/18/2023 9:10 AM EDT Consult [facility] [address] [place] [address] Priscilla Roque, [address] [place] [address] [facility] Cytology Cervical or vaginal smear or scraping study Pap Smear Pathology and Cytology Routine Well woman exam with routine gynecological exam Ordered: 06/21/2023 [facility] Work Phone: Comment on above: Ordered: 06/21/2023 Patient Education Depression, Ad ult (DC) [facility] Behavior[facility] Health DC Instructions [facility] Work Phone: Patient referral [facility] Work Phone: Payers Date Payer Category Payer Self-pay 2021 Medicaid [employer] [facility] [id number] 2021-Present [address] [address] [place] [address] [id number] 1994 Unknown [id number] 1994 Unknown [id number] 1994 Unknown [id number] 1994 Unknown [id number] 1994 Unknown [id number] 1994 Unknown [id number] 1994 Unknown [id number] 1959 Unknown [id number] 1959 Unknown [id number] Unknown [facility] [id number] Unknown [facility] [id number] Unknown [id number] Unknown [id number] Social History Date Type Detail Facility Unknown if ever smoked [facility] AddThis Other Sex Assigned At [place] [employer] [facility] AddThis Other Tobacco smoking status GAIS Tobacco smoking consumption unknown [facility] Start: 1995 Sex Assigned At Not on file [facility] Start: 07-23-2023 Tobacco smoking status NHIS Never smoked tobacco (finding) [facility] Start: 1995 Sex Assigned At Female F [facility] Goals Date Patient Goal Desired Activity /State Functional Status Date Assessment Result Facility 07-25-2023 Functional status Patient at Baseline [facility] Work Phone: Mental Status Date Assessment Result Facility 07-25-2023 Cognitive function Cognitive Sta tus Patient at Baseline [facility] Work Phone: Discharge summary 07-25-2023 Note Date & Type Note Facility 07-25-2023 Discharge summary Note Date/Time July 25, 2023 9:24am [facility] [address] [place] [address] Discharge Summary Signed Patient: Bel Lane MR#: [id number] : 1995 Acct:[id number] Age/Sex: 28 / F Adm Date: 4 Loc: 1S Room: [address] [place] [address]: Munir Torrez MD Copies to: MunirMD Ryan Arguello MD NO FAMILY PHYSICIAN~ Providers Date of Discharge: 07/25/23 Discharging Provider: Ryan Quinones Primary Care Provider: PHYSICIAN NO FAMILY Discharge Diagnosis (1) Depression: Final Diagnosis Final Discharge Diagnosis: Major depressive disorder Summary Hospital Course Hospital course: Ms. Lane is a 28 year old female with a reported history of bipolar disorder who presents for inpatient treatment due to increased anxiety and depression as well as suicidal ideation with plan. Reportedly, Bel wrote letters for her friends and kids, turned off her phone and drove to a bridge with intention of jumping off and committing suicide. She stopped herself and called suicide hotline for help. She was brought to unit and admitted. Patient was personally seen by me on the day of the encounter. I reviewed the history and performed the hernandez elements of the assessment. I formulated the planof care and confirmed this with the medical student as noted below At the time of the interview, patient reports some improvement in anxiety and depression. She denies SI, HI, and AVH at this time. She says there are multiplestressors in her life that caused her depression and anxiety to build up for at least the past year. She is a single mom raising 2 kids on her own. She states she has no support. She was diagnosed with bipolar disorder in the past but has not been on medications or seen a counselor for past 4 years. She describes increased agitation and being mean to people around her because of her mood. Shenoticed that her kids don't want to be around her, states when they are not in school during the weekends, they don't want to be with her. Bel also notes she was fired from her last job at [employer] and charged because of not checking IDs. She has a court appointment to attend on 07/26/23 for this. She got a new part-time job at [employer] but states this is not enough for her. This increased stress and depression/anxiety is what brought her to suicidal ideation. She denies any suicidal ideation currently, says she realized that was not the correct way to manage her symptoms and wants to do this correctly. Her appetite has been normal for her, she likes to snack throughout the day. She did not sleep well last night in the unit due to the vent sounds but normally gets 7-8 hours of sleep per night. She did have a headache last night from crying a lot but this improved with Tylenol. Bel notes she has some ongoing uterus issues and has a scheduled hysterectomy in August. No other diagnosed medical conditions. Past psych history: Bipolar disorder Past hospitalizations: None Past suicide attempts: Previous attempt at 14 y/o Previous medications: States she was not happy with her physician's treatment plan and stopped seeing them and taking medications 4 years ago. Alcohol and drug use: Smokes marijuana everyday. No tobacco or alcohol use. Denies other substances. Living: Lives with her 2 kids Employment: Part-time employee for [employer] Patient was treated with Pristiq. She tolerated the medication without any problems and did not report any side effects. She had gradual improvement of her symptoms of depression. She was social with peers on the front unit. She also attended groups and seem to learn coping skills. Her sleep and appetite were normal during her hospitalization. She did not exhibit any behavior concerning for suicidality. She did not have any conflict with peers or staff. On the day of discharge, she reported that she is feeling good. She denied any depression or suicidality. She was comfortable with discharge plan home and following up with outpatient services. Condition Condition at Discharge: Stable Status at Discharge Cognitive/behavioral status at discharge: Mental Status Exam: Appearance: grossly normal Mental Status: mental status grossly normal Mood: Euthymic mood Affect: Normal affect Speech and Movement: speech and movement normal and speech clear Attitude: cooperative Thought Process: normal Thought Content: Denied hallucinations, no homicidality and no suicidality Insight: Good Judgment: Good Functional status at discharge: independent ambulation Overall status at discharge: patient is back to baseline Time Spent with Patient Time spent providing/coordinating discharge services (# min): 30 Exam Physical Exam Vital Signs: Temp Pulse Resp BP Pulse Ox O2 Del Method 97.3 F L 89 18 109/76 100 Room Air 07/25/23 07:30 07/25/23 07:30 07/25/23 07:30 07/25/23 07:30 07/25/23 07:30 07/25/23 07:30 Discharge Plan Discharge Plan Patient Disposition: Home Activity: No Activity Restriction Diet: Regular Additional Instructions: Important Contact Information You can call [facility] Inpatient [facility] Health at [phone] any time day or night if you have emergent questions or question regarding discharge instructions. If at any time you are feeling an increase inyour psychiatric symptoms, call your physician or behavioral healthcare provider. If any time you have thoughts of harming yourself or others contact one of the following: Call 8 (available 28/11) Crisis Text Line (available 28/11) text 4HOPE to [phone] [facility] Line (available 8 a.m. Midnight) call [phone] ([phone]) Regular Diet No Activity Restrictions Instructions: Depression, Adult (DC), [facility] Behavior[facility] Health DC Instructions Prescriptions: New desvenlafaxine succinate 25 mg Tablet Extended Release 24 Hr 25 mg PO DAILY 30 Days Qty: 30 0RF Continued valacyclovir 500 mg tablet 500 mg PO DAILY Follow Up: [facility] [Other] (Please contact for medical needs or concerns) [facility] [Outside] ( camp manager: Monday07/26/23, you will receive a discharge followup call between 8am and 12pm. Therapy:?Monday08/01/22 at 2pm with Kamari for your initial assessment. Intake: Monday08/02/23 at 1:30pm with Nia. Please bring a copy of your photo ID, insurance card, and proof of household income.? Nurse Assessment: Monday08/04/23 at 2pm with nurse Marge, please bring a complete list of medications. ) Documented By: Ryan Quinones MD 07/25/23 0924 Signed By: <Electronically signed by Ryan Quinones MD> 07/25/23 1202 [facility] Work Phone: Progress note 07-24-2023 Note Date & Type Note Facility 07-24-2023 Progress note Note Date/Time July 24, 2023 11:54am [facility] [address] [place] [address] Psychiatry Progress Note Signed Patient: Bel Lane MR#: [id number] : 1995 Acct:[id number] Age/Sex: 28 / F Adm Date: 4 Loc: 1S Room: [address] [place] [address] Type : ADM IN Attending Dr: Munir Torrez MD Copies to: ~ Date of Service: 07/24/2023 Subjective Subjective Narrative: Today patient states that she is doing good and overall a lot better. States that she's feeling a lot more hopeful and uplifted. She rates her anxiety as a 3/10 with her primary concern being a court appearance she has on Monday. When asked how she is eating she said that her appetite is good although the food isn't great. She states that she is sleeping okay, but she likes silence and the fan in her room is loud. She said that once she has fallen asleep she isable to stay asleep. Overall, she states that she is looking forward to discharge and starting outpatient treatment and therapy which she has not done in 4yrs due to disagreement with her previous therapist. She denies depression, SI, HI, hallucinations. Mental Status Exam Appearance: Grossly normal Mental Status: Grossly normal Mood: Anxious Affect: Anxious Attitude: Cooperative Speech/Movement: Speech clear. Speech and movement normal. Thought Process:Linear, goal-oriented Thought Content: Reports anxiety. Denies depression, SI, HI, hallucinations Insight: Good Judgment: Good Patient was personally seen by me on the day of the encounter. I reviewed the history and performed the hernandez elements of the physical examination. I formulated the plan of care and confirmed this with the medical student as notedbelow. Exam Physical Exam Vital Signs: Temp Pulse Resp BP Pulse Ox O2 Del Method 98.1 F 78 18 106/70 100 Room Air 07/24/23 07:30 07/24/23 07:30 07/24/23 07:30 07/24/23 07:30 07/24/23 07:30 07/24/23 07:30 Assessment/Plan Assessment/Plan (1) Depression: Plan Admit to for management of depression and to ensure safety of self due to SI. Showing improvement with symptoms, anticipate discharge tomorrow Monitor suicidal behaviors for safety of self (15-minute face check). Pristiq 25mg PO Daily Valtrex 500mg PO Daily Recommend attending groups and psychoeducation for building coping skills. Typical short- and long-term side effects of the proposed medication regimen, including contraindications and clinically significant interactions, were discussed with the patient. Side effects include but not limited to sedation, overdose, hypo or hypertension, rash, movement disorders (TD, EPS), weight gain, and appetite changes and advised the patient not to drive or drink while taking these meds. Patient should reach out to medical provider if any of these side effects occur. We also discussed risk of overdose with this current med regimen. Patient voiced understanding of benefits and agreement with treatment plan. Targeted symptoms and signs, possible therapeutic benefit, side effect and riskswere discussed. No abnormal movements noted on exam. AIMS is Zero. Involve friends/family members if applicable to coordinate care and ensure appropriate outpatient appointments are scheduled prior to discharge. I have reviewed evaluations by other providers (ER notes, nurses and staff) Prognosis: Factors to be considered are the chronicity and severity of the symptoms and signs, associated comorbidity, and differential diagnosis-motivation to get in treatment, response to treatment, adherence to treatment recommendations, and using skills. The patient's verbal consent was provided. Documented By: Ryan Quinones MD 07/24/23 0937 Signed By: <Electronically signed by Ryan Quinones MD> 07/24/23 1636 [facility] Work Phone: History and physical note 07-23-2023 Note Date & Type Note Facility 07-23-2023 History and physi tiesha note Note Date/Time July 23, 2023 1:17pm [facility] [address] [place] [address] Psychiatry H&P Signed Patient: Bel Lane MR#: [id number] : 1995 Acct:[id number] Age/Sex: 28 / F Adm Date: 4 Loc: Room: [address] [place] [address] Type: ADM IN Attending Dr: Munir Torrez MD Copies to: Munir Torrez MD NO FAMILY PHYSICIAN~ Date of Service: 07/23/2023 HPI History of Present Illness History of present illness: Ms. Lane is a 28 year old female with a reported history of bipolar disorder who presents for inpatient treatment due to increased anxiety and depression as well as suicidal ideation with plan. Reportedly, Bel wrote letters for her friends and kids, turned off her phone and drove to a bridge with intention of jumping off and committing suicide. She stopped herself and called suicide hotline for help. She was brought to unit and admitted. Patient was personally seen by me on the day of the encounter. I reviewed the history and performed the hernandez elements of the assessment. I formulated the planof care and confirmed this with the medical student as noted below At the time of the interview, patient reports some improvement in anxiety and depression. She denies SI, HI, and AVH at this time. She says there are multiple stressors in her life that caused her depression and anxiety to build up for at least the past year. She is a single mom raising 2 kids on her own. She states she has no support. She was diagnosed with bipolar disorder in the past but has not been on medications or seen a counselor for past 4 years. She describes increased agitation and being mean to people around her because of her mood. Shenoticed that her kids don't want to be around her, states when they are not in school during the weekends, they don't want to be with her. Bel also notes she was fired from her last job at [employer] and charged because of not checking IDs. She has a court appointment to attend on 07/26/23 for this. She got a new part-time job at [employer] but states this is not enough for her. This increased stress and depression/anxiety is what brought her to suicidal ideation. She denies any suicidal ideation currently, says she realized that was not the correct way to manage her symptoms and wants to do this correctly. Her appetite has been normal for her, she likes to snack throughout the day. She did not sleep well last night in the unit due to the vent sounds but normally gets 7-8 hours of sleep per night. She did have a headache last night from crying a lot but this improved with Tylenol. Bel notes she has some ongoing uterus issues and has a scheduled hysterectomy in August. No other diagnosed medical conditions. Past psych history: Bipolar disorder Past hospitalizations: None Past suicide attempts: Previous attempt at 14 y/o Previous medications: States she was not happy with her physician's treatment plan and stopped seeing them and taking medications 4 years ago. Alcohol and drug use: Smokes marijuana everyday. No tobacco or alcohol use. Denies other substances. Living: Lives with her 2 kids Employment: Part-time employee for [employer] Review of symptoms: Constitutional: Denies chills and Denies fever(s) Eyes: Denies change in vision ENT: Denies abnormal hearing Cardiovascular: Denies chest pain Respiratory: Denies chest congestion and Denies cough Gastrointestinal: Denies change in bowel habits Genitourinary: Denies dysuria Musculoskeletal: + Improving headache Integumentary/Breasts: Denies dry skin Neurologic: Denies abnormal gait and Denies abnormal movements Psychiatric: Reports improving depression and anxiety. Denies SI, HI, and AVH. Physical exam: Const: cooperative Nutritional Appearance: average body habitus Orientation: alert, awake and oriented x3 HEENT: Head normal to inspection, hearing grossly normal bilaterally, external nose normal, face symmetric Eyes: appearance normal, both eyes and all related structures, sclerae normal Neck: normal visual inspection and full ROM Resp: normal respiratory effort, able to speak in complete sentences and symmetric chest movement Cardio: regular rate GI: normal to inspection and non-distended : deferred Skin: no rashes or lesions noted Neuro: CNI: normal olfaction CNII: Visual lynch intact, CNIII,IV,: EOM intact, no nystagmus. Pupils equal, round, reactive to light and accommodation, CNV: Sensation intact to light touch, CNVII: Raises eyebrows, smile/frown, puff out cheeks symmetrically, CNVIII: Hearing intact bilaterally, CNIX,X: Voice normal, soft palate elevation normal, symmetrical, CNXI: Shoulder shrug strong, equal bilaterally, CNXII: Tongue protrusion midline, movement symmetrical. Extrem: normal to inspection and full ROM Mental Status Exam: Appearance: grossly normal Mental Status: mental status grossly normal Mood: dysthymic mood Affect: anxious affect Speech and Movement: speech and movement normal and speech clear Attitude: cooperative Thought Process: normal Thought Content: Denies SI, HI, and AVH Insight: fair Judgment: fair [facility] Medical History (Updated 07/23/23 @ 12:20 by Bret Fischer) Seizure Anxiety Bipolar 1 disorder Surgical History (Updated 07/23/23 @ 02:24 by Haley Blackmon LPN) History of tonsillectomy and adenoidectomy Family History (Updated 02/20/23 @ 10:33 by Provider Conversion) Mother Family history of other condition Legacy FamHx Problem: neurological disorder, seizure disorder Diabetes Social History Smoking Status: Never smoker Substance Use Type: Marijuana Meds Medications and Allergies Allergies No Known Allergies Allergy (Verified 07/23/23 00:30) Home Medications valacyclovir 500 mg tablet 500 mg PO DAILY 07/23/23 [History Confirmed 07/23/23] Exam Physical Exam Vital Signs: Temp Pulse Resp BP Pulse Ox O2 Del Method 97.9 F 74 17 99/52 L 98 Room Air 07/23/23 07:30 07/23/23 07:30 07/23/23 07:30 07/23/23 07:30 07/23/23 07:30 07/23/23 07:30 Assessment/Plan (1) Depression: Plan Admit to 1S for management of depression and to ensure safety of self due to SI. Start Desvenlafaxine (Pristiq) 25 mg daily Monitor suicidal behaviors for safety of self (15-minute face check). Recommend attending groups and psychoeducation for building coping skills. Typical short- and long-term side effects of the proposed medication regimen, including contraindications and clinically significant interactions, were discussed with the patient. Side effects include but not limited to sedation, overdose, hypo or hypertension, rash, movement disorders (TD, EPS), weight gain, and appetite changes and advised the patient not to drive or drink while taking these meds. Patient should reach out to medical provider if any of these side effects occur. We also discussed risk of overdose with this current med regimen. Patient voiced understanding of benefits and agreement with treatment plan. Targeted symptoms and signs, possible therapeutic benefit, side effect and riskswere discussed. No abnormal movements noted on exam. AIMS is Zero. Involve friends/family members if applicable to coordinate care and ensure appropriate outpatient appointments are scheduled prior to discharge. I have reviewed evaluations by other providers (ER notes, nurses and staff) Prognosis: Factors to be considered are the chronicity and severity of the symptoms and signs, associated comorbidity, and differential diagnosis-motivation to get in treatment, response to treatment, adherence to treatment recommendations, and using skills. The patient's verbal consent was provided. Documented By: Munir Torrez MD 4 1204 Signed By: <Electronically signed by Munir Torrez MD> 07/23/23 1317 [facility] Work Phone: History of Present illness Narrative 06-21-2023 DINA Kim - 06/21/2023 2:00 PM EST Note Date & Type Note Facility 06-21-2023 History of Presen t illness Narrative Reason for Appointment: Patient ID: Bel Lane is a 27 y.o. female who presents for Well Women Visit Patient presents today for Annual Exam appointment. Current Medications: has a current medication list which includes the following prescription(s): valacyclovir. Medical History: Active Ambulatory Problems Diagnosis Date Noted Anxiety disorder 10/11/2017 Bipolar affective disorder, mixed (HCC) ([facility]/HCC) 10/11/2017 Resolved Ambulatory Problems Diagnosis Date Noted No Resolved Ambulatory Problems No Additional Past Medical History No family history on file. Social History Tobacco Use Smoking status: Not on file Smokeless tobacco: Not on file Substance Use Topics Alcohol use: Not on file Drug use: Not on file Past Surgical History: Procedure Laterality Date ENDOMETRIAL ABLATION 01/06/2023 TUBAL LIGATION 04/2016 No Known Allergies Review of Systems: Review of Systems Constitutional: Negative. HENT: Negative. Eyes: Negative. Respiratory: Negative. Cardiovascular: Negative. Gastrointestinal: Negative. Genitourinary: Negative. Musculoskeletal: Negative. Skin: Negative. Neurological: Negative. All other systems reviewed and are negative. Hematological: Negative. Endocrine: Negative. Allergic/Immunologic: Negative. Objective Physical Exam Constitutional: Appearance: Normal appearance. She is well-developed. Genitourinary: Vulva normal. Right Adnexa: not tender and no mass present. Left Adnexa: not tender and no mass present. No cervical discharge. Breasts: Breasts are soft. Right: Normal. Left: Normal. HENT: Head: Normocephalic. Nose: Nose normal. Mouth/Throat: Mouth: Mucous membranes are moist. Cardiovascular: Rate and Rhythm: Normal rate and regular rhythm. Pulmonary: Effort: Pulmonary effort is normal. Breath sounds: Normal breath sounds. Abdominal: General: Bowel sounds are normal. There is no distension. Palpations: Abdomen is soft. Tenderness: There is no abdominal tenderness. There is no guarding or rebound. Musculoskeletal: General: No swelling. Normal range of motion. Cervical back: Normal range of motion. Right lower leg: No edema. Left lower leg: No edema. Neurological: General: No focal deficit present. Mental Status: She is alert and oriented to person, place, and time. Skin: General: Skin is warm and dry. Psychiatric: Mood and Affect: Mood normal. Behavior: Behavior normal. Vitals and nursing note reviewed. Exam conducted with a tieing machine operator present. Vitals: Estimated body mass index is 40.17 kg/m as calculated from the following: Height as of 12/26/22: 5' 4 . Weight as of 05/23/23: 234 lb. BP: Patient's last menstrual period was 05/12/2023. Assessment/Plan Encounter Diagnosis Name Primary? Well woman exam with routine gynecological exam Patient presents today for an annual exam. Patient states she is doing well and has no complaints. Pap was obtained without difficulty. Follow Up: Patient is to return in one year for annual unless needed otherwise. Documented by Cait Luther MA on behalf of: DINA Kim documented in this encounter [facility] Healthcare Evaluation note 02-20-2023 Note Date & Type Note Facility 02-20-2023 Evaluation note Encounter Date Diagnosis Assessment Notes Feb, Sore throat (ICD-10 - J02.9) Feb, Acute sinusitis, recurrence not specified, unspecified location (ICD-10 - J01.90) Drink plenty fluids, get plenty of rest. Take the prednisone as prescribed until gone. Use the albuterol inhaler as prescribed as needed for cough or shortness of breath. Take the benzonatate capsules as prescribed as needed for cough. Take Tylenol or Motrin as needed for aches pains or fever. Follow-up with family physician if no improvement in 2 to 3 days Feb, Suspected COVID-19 virus infection (ICD-10 - Z20.822) [facility] Other Evaluation note Note Date & Type Note Facility Evaluation note Diagnosis Well woman exam with routine gynecological exam Routine gynecological examination documented in this encounter [facility] Healthcare Evaluation note Note Date & Type Note Facility Evaluation note Diagnosis Onset Date Depression acute [facility] Work Phone: History general Narrative - Reported Note Date & Type Note Facility History general Narrative - Reported Type Medical History HSV 1 Surgical History uterine ablation Surgical History tubal ligation Surgical History tonsilectomy Hospitalization History See Above [facility] Other Hospital Discharge instructions Note Date & Type Note Facility Hospital Discharge instructions Additional Instructions Important Contact Information You can call [facility] at [phone] any time day or night if you have emergent questions or question regarding discharge instructions. If at any time you are feeling an increase in your psychiatric symptoms, call your physician or behavioral healthcare provider. If any time you have thoughts of harming yourself or others contact one of the following: Call (available 28/11) Crisis Text Line (available 28/11) text 4HOPE to [phone] [facility] Line (available 8 a.m. Midnight) call [phone] ([phone]) Regular Diet No Activity Restrictions [facility] Work Phone: Summary Purpose Family History No Family History Records Found Relationship Condition Age at Onset Recorded Date/T hiram Not Specified Family history of other condition Unknow n Diabetes mellitus Unknown Advance Directives No Advanced Directives Records Found Advance Directive Response Recorded Date/ Time Advance Directives No July 21 11:08pm Chief Complaint and Reason for Visit Chief Complaint MDD MDD Reason for Visit Depression Additional Source Comments INFORMATION SOURCE (unrecogn ized section and content) DATE CREATED AUTHOR 11/16/2021 [facility] p[facility] DATE CREATED AUTHOR AUTHOR'S ORGANIZ ATION 07/19/2023 [facility] EPIC DATE CREATED AUTHOR AUTHOR'S ORGANIZ ATION 07/23/2023 [facility] DATE CREATED AUTHOR AUTHOR'S ORGANIZ ATION 08/23/2023 [facility] REASON FOR VISIT (unrecogniz ed section and content) Reason Comments Well Women Visit Care Teams (unrecognized sec tion and content) Team Status: Active Member Role Status Dates PHYSICIAN NO FAMILY Primary Care Provider Active Team Status: Inactive Member Role Status Dates PHYSICIAN NO FAMILY Primary Care Provider Active Start: July 23, 2023 End: July 25, 2023 Munir Torrez MD Admit Provide r, Attending Provider Active Start: July 23, 2023 End: July 25, 2023 Team Status: Active Member Role Status Dates PHYSICIAN NO FAMILY Primary Care Provider Active Start: July 23, 2023 Munir Torrez MD Admit Provide r, Attending Provider, Other Provider Active Start: July 23, 2023 FOR RECORDS PERTAINING TO PATIENTS WHO ARE OR HAVE BEEN ENROLLED IN A CHEMICAL DEPENDENCY/SUBSTANCEABUSE PROGRAM, SOME INFORMATION MAY BE OMITTED. This clinical summary was aggregated from multiple sources. Caution should be exercised in using it in the provision of clinical care. This summary normalizes information from multiple sources, and as a consequence, information in this document may materially change the coding, format and clinical context of patient data. In addition, data may be omitted in some cases. CLINICAL DECISIONS SHOULD BE BASED ON THE PRIMARY CLINICAL RECORDS. [facility] [employer] provides no warranty or guarantee of the accuracy or completeness of information in this document.
== END 2023-08-24 06:37 | disposition home or self-care (01) ==
LOC: LAB 06:37
PROVIDERS: Visit Provider Obstetrics & Gynecology
DX: Z01.812 Encounter for preprocedural laboratory examination (principal); N92.0 Excessive and frequent menstruation with regular cycle; R10.2 Pelvic and perineal pain; N94.6 Dysmenorrhea, unspecified
CPT/HCPCS: 36415; 86850; 86900; 86901

== ENCOUNTER 2023-08-28 12:39 | Inpatient (IN) | payer OTHER, SELFPAY ==
[2023-08-03 10:21] VITALS: BP 115/69; PULSE 78; RESP 18; TEMP 36.2; O2SAT 97; BMI 39.2
[2023-08-28] VITALS (16 sets, daily range): BP systolic 99–127; BP diastolic 68–78; PULSE 59–82; TEMP 36.4–36.7; O2SAT 86–99; BMI 40.7
--- OUTSIDE RECORDS SUMMARY | 2023-08-28 06:20 | XMS_ITS | CCD ---
Author Organization [facility] Care Team Providers Care Case Packer And Sealer Name Role Phone NISHA, DR LORENZ Primary [...] Admit Provider MD Munir Torrez Attending Provider Munir Torrez Admitting Unavailab le NO FAMILY, PHYSICIAN Primary Care Unavailable Ryan Quinones Attending Unavailable Munir Torrez Admitting Unavailab Munir Hartman Attending Unavailab le NO FAMILY, PHYSICIAN Primary Care Unavailable Medications Current Medications Medication Drug Class(es) Dates Sig (Normalized) Sig (Original) [id number] 200 actuat albuterol 0.09 mg/actuat metered dose [...] 07-23-2023 Cholesterol [Mass/Vol] 162 mg/dL Normal 140-200 [facility] Comment on above: Chol less than 200 m g/dl low riskChol 201-239 mg/dl borderline riskChol 240 mg/dl and greater high risk Order Comment: FASTI NG Y Result Comment: Chol less than 200 mg/dl low risk Chol 201-239 mg/dl borderline risk Chol 240 mg/dl and greater high risk Performed By: #### V [id number], LIPID, TSH3 wRFLX #### [address] Cholesterol in LDL Calc [Mas s/Vol]Ordered By: Munir Torrez on 07-23-2023 Cholesterol in LDL [Mass/Vol] 100 mg/dL 0-[address] [facility] Comment on above: LDL ATP III CLASSIFI CATIONLDL less than 100 mg/dL OptimalLDL 100-129 mg/dL Near or above optimalLDL 130-159 mg/dL Borderline highLDL 160-189 mg/dL HighLDL greater than 189 mg/dL Very high Cholesterol in VLDL Calc [Ma ss/Vol]Ordered By: Munir Torrez on 07-23-2023 Cholesterol in VLDL [Mass/Vol] 17 mg/dL [facility] ECG 12 lead ECGon 07-23-2023 ECG 12 lead ECG [facility] [address] [place] [address] [place] [address] Electrocardiograph Report Signed Patient: [place] Lane MR#: [id number] : 1995 Acct:[id number] Age/Sex: 28 / F ADM Date: 07/23/23 Loc: Room: [address] [place] [address] Type: ADM IN Attending Dr: Munir Torrez [...] : 443 ms Sinus rhythm with short MO Borderline ECG When compared with ECG of 23-JUL-2023 13:36, (Unconfirmed) Nonspecific T wave abnormality now evident in Anterior leads Confirmed by Raymond Rico ([id number]) on 07/24/2023 2:24:13 PM Referred By: Electronically Signed By:Raymond Rico Transcribed By: MUS Signed By Raymond Rico MD 07/24/23 1424 Normal [facility] Lipid Panelon 07-23-2023 LDL Cholesterol,Calculated 100 mg/dL Normal 0-100 [facility] Comment on above: Order Comment: ERVIN Arora Result Comment: LDL ATP III CLASSIFICATION LDL less than 100 mg/dL Optimal LDL 100-129 mg/dL Near or above optimal LDL 130-159 mg/dL Borderline high LDL 160-189 mg/dL High LDL greater than 189 mg/dL Very high Performed By: #### V [id number], LIPID, TSH3 wRFLX #### [facility] [address] Triglyceride w/Reflex 88 mg/dL Normal 0-149 [facility] Comment on above: Order Comment: ERVIN DIAZ Y Result Comment: TRIG ATP III CLASSIFICATION TRIG less than 150 mg/dL Normal TRIG 150-199 mg/dL Borderline high TRIG 200-500 mg/dL High TRIG greater than 500 mg/dL Very high Standard traceable to the Center for Disease Conrtrol and Prevention (CDC) test method. Performed By: #### V [id number], LIPID, TSH3 wRFLX #### [facility] [address] VLDL CHOLESTEROL 17 mg/dL Normal [facility] Comment on above: Order Comment: FASTI NG Y Performed By: #### V [id number], LIPID, TSH3 wRFLX #### [address] Serum or plasma high density lipoprotein (HDL) cholesterol measurementOrdered By: Munir Torrez on 07-23-2023 Cholesterol in HDL [Mass/Vol] 44 mg/dL Normal 23-[address] [facility] Comment on above: HDL CHOL ATP-III CLA SSIFICATION Cardiovascular RiskHDL > or equal to 60 mg/dL LOWHDL < 40 mg/dL HIGH Order Comment: FASTI NG Y Result Comment: HDL CHOL ATP-III CLASSIFICATION Cardiovascular Risk HDL > or equal to 60 mg/dL LOW HDL < 40 mg/dL HIGH Performed By: #### V [id number], LIPID, TSH3 wRFLX #### [address] Serum or plasma total choles terol/high density lipoprotein (HDL) cholesterol mass ratOrdered By: Munir Torrez on 07-23-2023 Cholesterol.total/Chol esterol in HDL [Mass ratio] 3.7 {ratio} Normal <5.[address] [facility] Comment on above: Order Comment: FASTI NG Y Performed By: #### V [id number], LIPID, TSH3 wRFLX #### [address] Thyroid Stim Hormone w/Rflxo n 07-23-2023 Thyroid Stim Hormone w/Rflx 1.60 u[iU]/mL Normal 0.45-5.33 [facility] Comment on above: Order Comment: FASTI NG Y Performed By: #### V [id number], LIPID, TSH3 wRFLX #### [facility] [address] [place] [id number] [facility] Thyrotropin [Units/volume] i n Serum or PlasmaOrdered By: Munir Torrez on 07-23-2023 TSH Qn 1.60 m[IU]/L 0.45-5.[address] [facility] Triglyceride [Mass/volume] i n Serum or PlasmaOrdered By: Munir Torrez on 07-23-2023 Triglyceride [Mass/Vol] 88 mg/dL 0-[address] [facility] Comment on above: TRIG ATP III CLASSIF ICATIONTRIG less than 150 mg/dL NormalTRIG 150-199 mg/dL Borderline highTRIG 200-500 mg/dL High TRIG greater than 500 mg/dL Very highStandard traceable to the Center for Disease Conrtrol and Prevention (CDC) test method. Vitamin D 25 Hydroxy Totalon 07-23-2023 Vitamin D 25 Hydroxy Total 16.1 ng/mL Low 30-100 [facility] Comment on above: Order Comment: ERVIN Arora Result Comment: MALIHA MIN D STATUS 25(OH)VITAMIN D RANGE (ng/mL) Deficient <20 Insufficient 20 to <30 Sufficient 30 to 100 Reference: Lisa Thrasher, Estrella TORRES, et al. Evaluation,treatment, and prevention of vitamin D deficiency; an Endocrine Society clinical practice guideline. JCEM. 2010; 96(7):1911-30. PERFORMED BY: [place] [address] PATHOLOGIST TECHNICAL SUPPORT SPECIALIST BART WHITFIELD M.D. Performed By: #### V [id number], LIPID, TSH3 wRFLX #### [place] [id number] [facility] Vitamin D+Metabolites [Mass/ volume] in Serum or PlasmaOrdered By: Munir Torrez on 07-23-2023 Vitamin D+Metabolites [Mass/Vol] 16.1 ng/mL 30-[address] [facility] Comment on above: VITAMIN D STATUS 25( OH)VITAMIN D RANGE (ng/mL) Deficient <20 Insufficient 20 to <30Sufficient 30 to 100Reference: Lisa Thrasher, Estrella TORRES, et al. Evaluation,treatment, and prevention of vitamin D deficiency; an Endocrine Society clinical practice guideline. JCEM. 2010; 96(7):1911-30. ACETAMINOPHENon 07-22-2023 Acetaminophen [Mass/Vol] 4.9 ug/mL Low 10.0-30.0 [facility] Comment on above: Result Comment: Refe rence ranges are for therapeutic limits. Performed By: #### C FREDRICK, 3298-7, 5643-2, [facility], 4024-6, THYR #### [facility] ([id number]) [address] [place] [address] 59639 CBC AND AUTO DIFFon 07-22-19 ABSOLUTE BASOPHIL 0.0 X10E9/L Normal 0.0-0.2 [facility] Comment on above: Performed By: #### Malachi ALCALA, [facility]-7, 5643-2, [facility], [facility], THYR #### [facility] ([id number]) [address] [place] [address] 39927 ABSOLUTE NEUTROPHIL 9.1 X10E9/L High 1.5-6.6 [facility] Comment on above: Performed By: #### Malachi ALCALA, 3298-7, 5643-2, [facility], 4026, THYR #### [facility] ([id number]) [address] [place] [address] 09043 Basophils/100 WBC (Bld) 0.3 % Normal [facility] Comment on above: Performed By: #### C BCA, 3298-7, 5643-2, [facility], 4024-6, THYR #### [facility] ([id number]) [address] [place] [address] 10768 Eosinophils (Bld) [#/Vol] 0.0 10*3/uL Normal 0.0-0.4 [facility] Comment on above: Performed By: #### Malachi ALCALA, 3298-7, 5643-2, [facility], 4024-6, THYR #### [facility] ([id number]) [address] [place] [address] 31015 Eosinophils/100 WBC (Bld) 0.4 % Normal [facility] Comment on above: Performed By: #### C FREDRICK, 3298-7, 5643-2, CMP, 4024-6, THYR #### [facility] ([id number]) [address] [place] [address] 70825 Erythrocyte distribution width (RBC) [Ratio] 13.6 % Normal 11.5-15.0 [facility] Comment on above: Performed By: #### C FREDRICK, 3297-7, 5643-2, CMP, 4024-6, THYR #### [facility] ([id number]) [address] [place] [address] 77941 Hematocrit (Bld) [Volume fraction] 37.1 % Normal 35-47 [facility] Comment on above: Performed By: #### C FREDRICK, 3297-7, 5643-2, CMP, 4024-6, THYR #### [facility] ([id number]) [address] [place] [address] 83566 Hemoglobin (Bld) [Mass/Vol] 12.3 g/dL Normal 11.7-15.5 [facility] Comment on above: Performed By: #### C FREDRICK, 3297-7, 5643-2, CMP, 4024-6, THYR #### [facility] ([id number]) [address] [place] [address] 85102 Lymphocytes (Bld) [#/Vol] 1.9 10*3/uL Normal 1.0-3.5 [facility] Comment on above: Performed By: #### C FREDRICK, 3298-7, 5643-2, CMP, 4024-6, THYR #### [facility] ([id number]) [address] [place] [address] 94090 Lymphocytes/100 WBC (Bld) 16.0 % Normal [facility] Comment on above: Performed By: #### Malachi ALCALA, 8-7, 5643-2, CMP, 4024-6, THYR #### [facility] ([id number]) [address] [place] [address] 35814 MCH (RBC) [Entitic mass] 28.1 pg Normal 27-34 [facility] Comment on above: Performed By: #### Malachi ALCALA, 3297-7, 5643-2, CMP, 4024-6, THYR #### [facility] ([id number]) [address] [place] [address] 17232 MCHC (RBC) [Mass/Vol] 33.1 g/dL Normal 32-36 [facility] Comment on above: Performed By: #### Malachi ALCALA, 3297, 5643-2, CMP, 4024-6, THYR #### [facility] ([id number]) [address] [place] [address] 40786 MCV (RBC) [Entitic vol] 85 fL Normal 80-100 [facility] Comment on above: Performed By: #### Malachi ALCALA, 7, 5643-2, CMP, 4024-6, THYR #### [facility] ([id number]) [address] [place] [address] 77969 Monocytes (Bld) [#/Vol] 0.5 10*3/uL Normal 0-0.9 [facility] Comment on above: Performed By: #### Malachi ALCALA, 3297-7, 5643-2, CMP, 4024-6, THYR #### [facility] ([id number]) [address] [place] [address] 54919 Monocytes/100 WBC (Bld) 4.5 % Normal [facility] Comment on above: Performed By: #### Malachi ALCALA, 3297-7, 5643-2, CMP, 4024-6, THYR #### [facility] ([id number]) [address] [place] [address] 19654 Neutrophils/100 WBC (Bld) 78.8 % Normal [facility] Comment on above: Performed By: #### Malachi ALCALA, 3298-7, 5643-2, CMP, 4024-6, THYR #### [facility] ([id number]) [address] [place] [address] 24089 Platelet mean volume (Bld) [Entitic vol] 9.8 fL Normal 7-12 [facility] Comment on above: Performed By: #### Malachi ALCALA, 3297-7, 5643-2, CMP, 4024-6, THYR #### [facility] ([id number]) [address] [place] [address] 43153 Platelets (Bld) [#/Vol] 211 10*3/uL Normal 150-450 [facility] Comment on above: Performed By: #### Malachi ALCALA, 3297-7, 5643-2, CMP, 4024-6, THYR #### [facility] ([id number]) [address] [place] [address] 13372 RBC COUNT 4.37 X10E12/L Normal 3.80-5.20 [facility] Comment on above: Performed By: #### Malachi ALCALA, 3297-7, 5643-2, CMP, 4024-6, THYR #### [facility] ([id number]) [address] [place] [address] 66525 WBC (Bld) [#/Vol] 11.6 10*3/uL High 4.0-11.0 [facility] Comment on above: Performed By: #### Malachi ALCALA, 3298-7, 5643-2, CMP, 4024-6, THYR #### [facility] ([id number]) [address] [place] [address] 68093 COMPREHENSIVE METABOLIC PANE Yuriy 07-22-2023 Albumin [Mass/Vol] 4.7 g/dL Normal 3.2-5.3 [facility] Comment on above: Performed By: #### 2 106-3 #### [facility] ([id number]) [address] [place] [address] 89459 ALP [Catalytic activity/Vol] 66 U/L Normal 39-130 [facility] Comment on above: Performed By: #### 2 106-3 #### [facility] ([id number]) [address] [place] [address] 00009 ALT [Catalytic activity/Vol] 19 U/L Normal 0-31 [facility] Comment on above: Performed By: #### 2 106-3 #### [facility] ([id number]) [address] [place] [address] 83896 Anion gap [Moles/Vol] 8 mmol/L Normal 5-15 [facility] Comment on above: Performed By: #### 2 106-3 #### [facility] ([id number]) [address] [place] [address] 34319 AST [Catalytic activity/Vol] 21 U/L Normal 0-41 [facility] Comment on above: Performed By: #### 2 106-3 #### [facility] ([id number]) [address] [place] [address] 00653 Bilirubin [Mass/Vol] 0.5 mg/dL Normal 0.3-1.2 [facility] Comment on above: Performed By: #### 2 106-3 #### [facility] ([id number]) [address] [place] [address] 44998 Calcium [Mass/Vol] 9.2 mg/dL Normal 8.5-10.5 [facility] Comment on above: Performed By: #### 2 106-3 #### [facility] ([id number]) [address] [place] [address] 00718 Chloride [Moles/Vol] 106 mmol/L Normal 98-109 [facility] Comment on above: Performed By: #### 2 106-3 #### [facility] ([id number]) [address] [place] [address] 72968 CO2 [Moles/Vol] 25 mmol/L Normal 22-32 [facility] Comment on above: Performed By: #### 2 106-3 #### [facility] ([id number]) [address] [place] [address] 08825 Creatinine [Mass/Vol] 0.71 mg/dL Normal 0.40-1.00 [facility] Comment on above: Result Comment: METH OD TRACEABLE TO IDMS STANDARD Performed By: #### 2 106-3 #### [facility] ([id number]) [address] [place] [address] [place] [address] eGFR (CKD-EPI) NON-RACE DEPENDENT >90 Normal >59 [facility] Comment on above: Result Comment: Reported eGFR is based on the CKD-EPI 2020 equation that does not use a race coefficient. Performed By: #### 2 106-3 #### [facility] ([id number]) [address] [place] [address] 73579 Glucose [Mass/Vol] 92 mg/dL Normal 65-99 [facility] Comment on above: Performed By: #### 2 106-3 #### [facility] ([id number]) [address] [place] [address] 94041 Potassium [Moles/Vol] 3.7 mmol/L Normal 3.5-5.0 [facility] Comment on above: Performed By: #### 2 106-3 #### [facility] ([id number]) [address] [place] [address] 55626 Protein [Mass/Vol] 8.3 g/dL High 6.0-8.0 [facility] Comment on above: Performed By: #### 2 106-3 #### [facility] ([id number]) [address] [place] [address] 92262 Sodium [Moles/Vol] 139 mmol/L Normal 134-146 [facility] Comment on above: Performed By: #### 2 106-3 #### [facility] ([id number]) [address] [place] [address] 14067 Urea nitrogen [Mass/Vol] 12 mg/dL Normal 5-23 [facility] Comment on above: Performed By: #### 2 106-3 #### [facility] ([id number]) [address] [place] [address] 53843 DRUG SCREEN, URINEon 024 AMPHETAMINE/METHAMP Negative Normal NEG [facility] Comment on above: Result Comment: AMPH /METH screening cut off = 1000 ng/mL Performed By: #### 2 106-3 #### [facility] ([id number]) [address] [place] [address] 30149 BARBITURATES Negative Normal NEG [facility] Comment on above: Result Comment: Alicia iturates screening cut off value = 200 ng/mL Performed By: #### 2 106-3 #### [facility] ([id number]) [address] [place] [address] 54776 BENZODIAZEPINES Positive Abnormal NEG [facility] Comment on above: Result Comment: Conf irmation available upon request. Benzodiazepines screening cut off value = 200 ng/mL Performed By: #### 2 106-3 #### [facility] ([id number]) [address] [place] [address] 76931 CANNABINOIDS Positive Abnormal NEG [facility] Comment on above: Result Comment: Conf irmation available upon request. Cannabinoids/THC screening cut off value = 50 ng/mL Performed By: #### 2 106-3 #### [facility] ([id number]) [address] [place] [address] 17739 COCAINE METABOLITE Negative Normal NEG [facility] Comment on above: Result Comment: Coca ine screening cut off value = 300 ng/mL Performed By: #### 2 106-3 #### [facility] ([id number]) [address] [place] [address] 65963 ECSTASY Negative Normal NEG [facility] Comment on above: Result Comment: Ecst asy screening cut off value = 500 ng/mL This report is intended for use in clinical monitoring or management of patients. Performed By: #### 2 106-3 #### [facility] ([id number]) [address] [place] [address] 12208 METHADONE Negative Normal NEG [facility] Comment on above: Result Comment: Meth adone screening cut off value = 300 ng/mL. Performed By: #### 2 106-3 #### [facility] ([id number]) [address] [place] [address] 92018 OPIATES Negative Normal NEG [facility] Comment on above: Result Comment: Opia chadwick screening cut off value = 300 ng/mL NOTE: This test is used for the detection of codeine, hydrocodone (>1000 ng/mL), morphine and hydromorphone (>900 ng/mL) in urine. Performed By: #### 2 106-3 #### [facility] ([id number]) [address] [place] [address] [place] [address] OXYCODONE Negative Normal NEG [facility] Comment on above: Result Comment: Oxyc odone screening cut off value = 300 ng/mL NOTE: This test is used for the detection of oxycodone and oxymorphone in urine. Performed By: #### 2 106-3 #### [facility] ([id number]) [address] [place] [address] 52972 PHENCYCLIDINE Negative Normal NEG [facility] Comment on above: Result Comment: Phen cyclidine screening cut off value = 25 ng/mL Performed By: #### 2 106-3 #### [facility] ([id number]) [address] [place] [address] 32713 ETHANOLon 07-22-2023 Ethanol [Mass/Vol] mg/dL Normal 0.00-0.08 [facility] Comment on above: Result Comment: This report is intended for use in clinical monitoring or management of patients. Performed By: #### 2 106-3 #### [facility] ([id number]) [address] [place] [address] 76933 HCG ( test) Ql (U)o n 07-22-2023 Beta HCG ( test) Ql (U) Negative Normal NEG [facility] Comment on above: Performed By: #### 2 106-3 #### [facility] ([id number]) [address] [place] [address] 86647 Salicylates [Mass/Vol]on SALICYLATE <4.0 Normal 2.0-25.0 [facility] Comment on above: Result Comment: Refe rence ranges are for therapeutic limits. Performed By: #### 2 106-3 #### [facility] ([id number]) [address] [place] [address] 68384 THYROID PROFILEon 07-22-2023 Free T4 [Mass/Vol] 0.77 ng/dL Normal 0.61-1.60 [facility] Comment on above: Performed By: #### 2 106-3 #### [facility] ([id number]) [address] [place] [address] 93655 TSH 0.67 uIU/mL Normal 0.49-4.67 [facility] Comment on above: Performed By: #### 2 106-3 #### [facility] ([id number]) [address] [place] [address] 70679 URN MACROSCOPIC NURon 2023 BILIRUBIN BRYAN Negative Normal NEG [facility] Comment on above: Performed By: #### N UM #### [facility] ([id number]) [address] [place] [address] 48650 BLOOD/HGB BRYAN Negative Normal NEG [facility] Comment on above: Performed By: #### N UM #### [facility] ([id number]) [address] [place] [address] 55076 GLUCOSE BRYAN Negative Normal NEG [facility] Comment on above: Performed By: #### N UM #### [facility] ([id number]) [address] [place] [address] 32755 KETONES BRYAN 15 mg/dL Abnormal NEG [facility] Comment on above: Performed By: #### N UM #### [facility] ([id number]) [address] [place] [address] 88531 LEUKOCYTE ESTERASE BRYAN Trace Abnormal NEG [facility] Comment on above: Performed By: #### N UM #### [facility] ([id number]) [address] [place] [address] 63061 NITRITE BRYAN Negative Normal NEG [facility] Comment on above: Performed By: #### N UM #### [facility] ([id number]) [address] [place] [address] 91373 PH BRYAN 6.0 Normal 5.0-8.5 [facility] Comment on above: Performed By: #### N UM #### [facility] ([id number]) [address] [place] [address] 08250 PROTEIN BRYAN Negative Normal NEG [facility] Comment on above: Performed By: #### N UM #### [facility] ([id number]) [address] [place] [address] 60922 SPECIFIC GRAVITY BRYAN 1.025 Normal 1.003-1.035 [facility] Comment on above: Performed By: #### N UM #### [facility] ([id number]) [address] [place] [address] 13887 UROBILINOGEN BRYAN 0.2 eu/dL Normal <1.1 [facility] Comment on above: Performed By: #### N UM #### [facility] ([id number]) [address] [place] [address] 49292 BASIC METABOLIC PANLon 05-11 Anion gap [Moles/Vol] 8 mmol/L Normal 5-15 [facility] Comment on above: Performed By: #### B MP, CBCA, PINR, 79335-7 #### [facility] ([id number]) [address] [place] [address] 60597 Calcium [Mass/Vol] 9.0 mg/dL Normal 8.5-10.5 [facility] Comment on above: Performed By: #### B MP, CBCA, PINR, 11687-0 #### [facility] ([id number]) [address] [place] [address] 50046 Chloride [Moles/Vol] 105 mmol/L Normal 98-109 [facility] Comment on above: Performed By: #### B MP, CBCA, PINR, 52996-2 #### [facility] ([id number]) [address] [place] [address] 44745 CO2 [Moles/Vol] 26 mmol/L Normal 22-32 [facility] Comment on above: Performed By: #### B MP, CBCA, PINR, 88415-6 #### [facility] ([id number]) [address] [place] [address] 25741 Creatinine [Mass/Vol] 0.78 mg/dL Normal 0.40-1.00 [facility] Comment on above: Result Comment: METH OD TRACEABLE TO IDMS STANDARD Performed By: #### B MP, CBCA, PINR, 04458-6 #### [facility] ([id number]) [address] [place] [address] 55258 eGFR (CKD-EPI) NON-RACE DEPENDENT >90 Normal >59 [facility] Comment on above: Result Comment: Reported eGFR is based on the CKD-EPI 2020 equation that does not use a race coefficient. Performed By: #### B MP, CBCA, PINR, 03625-0 #### [facility] ([id number]) [address] [place] [address] 97540 Glucose [Mass/Vol] 103 mg/dL High 65-99 [facility] Comment on above: Performed By: #### B MP, CBCA, PINR, 29250-4 #### [facility] ([id number]) [address] [place] [address] 23617 Potassium [Moles/Vol] 3.4 mmol/L Low 3.5-5.0 [facility] Comment on above: Performed By: #### B MP, CBCA, PINR, 24252-1 #### [facility] ([id number]) [address] [place] [address] 24096 Sodium [Moles/Vol] 139 mmol/L Normal 134-146 [facility] Comment on above: Performed By: #### B MP, CBCA, PINR, 47841-5 #### [facility] ([id number]) [address] [place] [address] 49340 Urea nitrogen [Mass/Vol] 11 mg/dL Normal 5-23 [facility] Comment on above: Performed By: #### B MP, CBCA, PINR, [id number] #### [facility] ([id number]) [address] [place] [address] [id number] CBC AND AUTO DIFFon 05-11-19 24 ABSOLUTE BASOPHIL 0.0 X10E9/L Normal 0.0-0.2 [facility] Comment on above: Performed By: #### B MP, CBCA, PINR, [id number] #### [facility] ([id number]) [address] [place] [address] 13431 ABSOLUTE NEUTROPHIL 5.5 X10E9/L Normal 1.5-6.6 [facility] Comment on above: Performed By: #### B MP, CBCA, PINR, [id number] #### [facility] ([id number]) [address] [place] [address] 10075 Basophils/100 WBC (Bld) 0.3 % Normal [facility] Comment on above: Performed By: #### B MP, CBCA, PINR, 02450-5 #### [facility] ([id number]) [address] [place] [address] 42830 Eosinophils (Bld) [#/Vol] 0.3 10*3/uL Normal 0.0-0.4 [facility] Comment on above: Performed By: #### B MP, CBCA, PINR, 03429-7 #### [facility] ([id number]) [address] [place] [address] 25124 Eosinophils/100 WBC (Bld) 2.9 % Normal [facility] Comment on above: Performed By: #### B MP, CBCA, PINR, 95899-3 #### [facility] ([id number]) [address] [place] [address] 58586 Erythrocyte distribution width (RBC) [Ratio] 14.0 % Normal 11.5-15.0 [facility] Comment on above: Performed By: #### B MP, CBCA, PINR, 95615-5 #### [facility] ([id number]) [address] [place] [address] 56575 Hematocrit (Bld) [Volume fraction] 33.6 % Low 35-47 [facility] Comment on above: Performed By: #### B MP, CBCA, PINR, 92717-4 #### [facility] ([id number]) [address] [place] [address] 53704 Hemoglobin (Bld) [Mass/Vol] 11.3 g/dL Low 11.7-15.5 [facility] Comment on above: Performed By: #### B MP, CBCA, PINR, 85069-2 #### [facility] ([id number]) [address] [place] [address] 93882 Lymphocytes (Bld) [#/Vol] 2.9 10*3/uL Normal 1.0-3.5 [facility] Comment on above: Performed By: #### B MP, CBCA, PINR, 14776-3 #### [facility] ([id number]) [address] [place] [address] 93872 Lymphocytes/100 WBC (Bld) 30.6 % Normal [facility] Comment on above: Performed By: #### B MP, CBCA, PINR, 31148-2 #### [facility] ([id number]) [address] [place] [address] 09635 MCH (RBC) [Entitic mass] 28.3 pg Normal 27-34 [facility] Comment on above: Performed By: #### B MP, CBCA, PINR, 09478-8 #### [facility] ([id number]) [address] [place] [address] 39914 MCHC (RBC) [Mass/Vol] 33.6 g/dL Normal 32-36 [facility] Comment on above: Performed By: #### B MP, CBCA, PINR, 43388-7 #### [facility] ([id number]) [address] [place] [address] 94451 MCV (RBC) [Entitic vol] 84 fL Normal 80-100 [facility] Comment on above: Performed By: #### B MP, CBCA, PINR, 04568-7 #### [facility] ([id number]) [address] [place] [address] 54096 Monocytes (Bld) [#/Vol] 0.7 10*3/uL Normal 0-0.9 [facility] Comment on above: Performed By: #### B MP, CBCA, PINR, 47176-5 #### [facility] ([id number]) [address] [place] [address] 46927 Monocytes/100 WBC (Bld) 7.7 % Normal [facility] Comment on above: Performed By: #### B MP, CBCA, PINR, 74351-9 #### [facility] ([id number]) [address] [place] [address] 47874 Neutrophils/100 WBC (Bld) 58.5 % Normal [facility] Comment on above: Performed By: #### B MP, CBCA, PINR, 65817-0 #### [facility] ([id number]) [address] [place] [address] 70532 Platelet mean volume (Bld) [Entitic vol] 9.9 fL Normal 7-12 [facility] Comment on above: Performed By: #### B MP, CBCA, PINR, 26617-1 #### [facility] ([id number]) [address] [place] [address] 80195 Platelets (Bld) [#/Vol] 210 10*3/uL Normal 150-450 [facility] Comment on above: Performed By: #### B MP, CBCA, PINR, 28598-5 #### [facility] ([id number]) [address] [place] [address] 57602 RBC COUNT 3.99 X10E12/L Normal 3.80-5.20 [facility] Comment on above: Performed By: #### B MP, CBCA, PINR, 89086-9 #### [facility] ([id number]) [address] [place] [address] 83747 WBC (Bld) [#/Vol] 9.4 10*3/uL Normal 4.0-11.0 [facility] Comment on above: Performed By: #### B MP, CBCA, PINR, 84447-2 #### [facility] ([id number]) [address] [place] [address] 51789 HCG ( test) Ql (U)o n 05-11-2023 Beta HCG ( test) Ql (U) Negative Normal NEG [facility] Comment on above: Performed By: #### 2 106-3 #### [facility] ([id number]) [address] [place] [address] 76727 PROTIME AND INRon 05-11-2023 INR Coag (PPP) [Relative time] 1.1 {INR} Normal 0.8-1.1 [facility] Comment on above: Performed By: #### B MP, CBCA, PINR, 24024-9 #### [facility] ([id number]) [address] [place] [address] 98802 PT Coag (PPP) [Time] 12.7 s Normal 9.8-13.2 [facility] Comment on above: Result Comment: NEW REFERENCE RANGE Performed By: #### B MP, CBCA, PINR, 56866-0 #### [facility] ([id number]) [address] [place] [address] 36205 URN MACROSCOPIC NURon 2023 BILIRUBIN BRYAN Negative Normal NEG [facility] Comment on above: Performed By: #### N UM #### [facility] ([id number]) [address] [place] [address] 68315 BLOOD/HGB BRYAN Large Abnormal NEG [facility] Comment on above: Performed By: #### N UM #### [facility] ([id number]) [address] [place] [address] 69904 GLUCOSE BRYAN Negative Normal NEG [facility] Comment on above: Performed By: #### N UM #### [facility] ([id number]) [address] [place] [address] [place] [address] KETONES BRYAN Trace Abnormal NEG [facility] Comment on above: Performed By: #### N UM #### [facility] ([id number]) [address] [place] [address] 02581 LEUKOCYTE ESTERASE BRYAN Negative Normal NEG [facility] Comment on above: Performed By: #### N UM #### [facility] ([id number]) [address] [place] [address] 06257 NITRITE BRYAN Negative Normal NEG [facility] Comment on above: Performed By: #### N UM #### [facility] ([id number]) [address] [place] [address] 12682 PH BRYAN 6.5 Normal 5.0-8.5 [facility] Comment on above: Performed By: #### N UM #### [facility] ([id number]) [address] [place] [address] 11421 PROTEIN BRYAN Negative Normal NEG [facility] Comment on above: Performed By: #### N UM #### [facility] ([id number]) [address] [place] [address] [place] [address] SPECIFIC GRAVITY BRYAN 1.025 Normal 1.003-1.035 [facility] Comment on above: Performed By: #### N UM #### [facility] ([id number]) [address] [place] [address] [place] [address] UROBILINOGEN BRYAN 0.2 eu/dL Normal <1.1 [facility] Comment on above: Performed By: #### N UM #### [facility] ([id number]) [address] [facility] [place] [address] aPTT Coag (PPP) [Time]on aPTT Coag (Bld) [Time] 30 s Normal 26-[address] [facility] Comment on above: Result Comment: NEW REFERENCE RANGE Performed By: #### B MP, CBCA, PINR, 59296-2 #### [facility] ([id number]) [address] [facility] [place] [address] COVID + FLU Quick Testingon 02-20-2023 SARS-CoV-2 (COVID-19) RNA TRE+probe Ql (Unsp spec) Negative [facility] [employer] Other COVID + FLU Quick Testing Negative [facility] Other Quick Strepon 02-20-2023 S. pyogenes Org specific cx Ql (Throat) Negative [facility] [employer] Other Quick Strep [facility] [employer] Other PAP ACOG PANEL 2: 21 to 29on 08-17-2021 . . Normal [facility] Comment on above: Performed By: #### 4 [id number] #### [facility] [address] [place] [address] Dr. Luis Thrasher Age Gdln ACOG Testing 21-29 Normal [facility] Comment on above: Performed By: #### 4 [id number] #### [facility] [address] [address] [address] Luis Thrasher DIAGNOSIS: Comment Normal [facility] Comment on above: Result Comment: NEGA TIVE FOR INTRAEPITHELIAL LESION OR MALIGNANCY. PREDOMINANCE OF COCCOBACILLI CONSISTENT WITH SHIFT IN VAGINAL WILMER IS PRESENT. Performed By: #### 4 [id number] #### [facility] [address] [place] [address] Dr. Luis Thrasehr Methodology: Comment Normal [facility] Comment on above: Result Comment: This liquid based ThinPrep(R) pap test was screened with the use of an image guided system. Performed By: #### 4 [id number] #### [facility] [address] [place] [address] Dr. Luis Thrasher Note: Comment [facility] Comment on above: Result Comment: The Pap smear is a screening test designed to aid in the detection of premalignant and malignant conditions of the uterine cervix. It is not a diagnostic procedure and should not be used as the sole means of detecting cervical cancer. Both false-positive and false-negative reports do occur. . Performed By: #### 4 [id number] #### [facility] [address] [place] [address] Dr. Luis Thrasher Performed by: Comment Normal [facility] Comment on above: Result Comment: Cori Box, [employer] (ASCP) Performed By: #### 4 [id number] #### [facility] [address] [place] [address] Dr. Luis Thrasher Reflex Criteria: Comment [facility] Comment on above: Result Comment: The HPV DNA reflex criteria were not met with this specimen result therefore, no HPV testing was performed. . Performed By: #### 4 [id number] #### [facility] [address] [place] [address] Dr. Luis Thrasher Specimen adequacy: Comment Normal [facility] Comment on above: Result Comment: Sati sfactory for evaluation. Endocervical and/or squamous metaplastic cells (endocervical component) are present. Performed By: #### 4 [id number] #### [facility] [address] [place] [address] Dr. Luis Thrasher PAP ACOG PANEL 2: 21 to 29on 02-02-2021 . . Normal [facility] Comment on above: Performed By: #### 4 [id number] #### [facility] [address] [place] [address] Dr. Luis Thrasher Age Gdln ACOG Testing - [facility] Comment on above: Performed By: #### 4 [id number] #### [facility] [address] [place] [address] Dr. Luis Thrasher DIAGNOSIS: Comment Abnormal [facility] Comment on above: Result Comment: EPIT HELIAL CELL ABNORMALITY. ATYPICAL SQUAMOUS CELLS OF UNDETERMINED SIGNIFICANCE (ASC-US). Performed By: #### 4 [id number] #### [facility] [address] [place] [address] Dr. Luis Thrasher Electronically signed by: Comment Normal [facility] Comment on above: Result Comment: Heena Velarde MD, Pathologist Performed By: #### 4 [id number] #### [facility] [address] [place] [address] Dr. Luis Thrasher HPV Aptima Negative Normal Negative [facility] Comment on above: Result Comment: This nucleic acid amplification test detects fourteen high-risk HPV types (16,18,31,33,35,39,45,51,52,56,58,59,66,68) without differentiation. Performed By: #### 4 [id number] #### [facility] [address] [place] [address] Dr. Luis Thrasher Methodology: Comment Normal [facility] Comment on above: Result Comment: This liquid based ThinPrep(R) pap test was screened with the use of an image guided system. Performed By: #### 4 [id number] #### [facility] [address] [place] [address] Dr. Luis Thrasher Note: Comment Normal [facility] Comment on above: Result Comment: The Pap smear is a screening test designed to aid in the detection of premalignant and malignant conditions of the uterine cervix. It is not a diagnostic procedure and should not be used as the sole means of detecting cervical cancer. Both false-positive and false-negative reports do occur. . Performed By: #### 4 [id number] #### [facility] [address] [place] [address] Dr. Luis Thrasher Pathologist Provided ICD10 Comment Normal [facility] Comment on above: Result Comment: R87. [id number] Performed By: #### 4 [id number] #### [facility] [address] [place] [address] Dr. Luis Thrasher Performed by: Comment Normal [facility] Comment on above: Result Comment: Miranda Saab, [employer] (ASCP) Performed By: #### 4 [id number] #### [facility] [address] [place], [place] [address] Dr. Luis Thrasher Recommendation: Comment Abnormal [facility] Comment on above: Result Comment: Sugg est follow up as clinically appropriate. Performed By: #### 4 [id number] #### [facility] [address] [place], [place] [address] Dr. Luis Thrasher Reflex Criteria: Comment Normal [facility] Comment on above: Result Comment: See below for HPV testing results. . Performed By: #### 4 [id number] #### [facility] [address] [place], [place] [address] Dr. Luis Thrasher Specimen adequacy: Comment Normal [facility] Comment on above: Result Comment: Sati sfactory for evaluation. Endocervical and/or squamous metaplastic cells (endocervical component) are present. Performed By: #### 4 [id number] #### [facility] [id number] Luis Thrasher Vital Signs Date Time Vital Sign Value Performing Clinician Facility 07-25-2023 07:30-0400 Body temperature 97.3 [degF] PHYSICIAN NO [facility] 07-25-2023 07:30-0400 Diastolic blood pressure 76 mm[Hg] PHYSICIAN NO [facility] 07-25-2023 07:30-0400 Heart rate 89 /min PHYSICIAN NO [facility] 07-25-2023 07:30-0400 Respiratory rate 18 /min PHYSICIAN NO [facility] 07-25-2023 07:30-0400 SaO2% (BldA) [Mass fraction] 100 % PHYSICIAN NO [facility] 07-25-2023 07:30-0400 Systolic blood pressure 109 mm[Hg] PHYSICIAN NO [facility] 07-24-2023 14:28-0400 Body height 162.56 cm PHYSICIAN NO [facility] 07-23-2023 02:24-0400 Body weight 104.32 kg PHYSICIAN NO [facility] 06-21-2023 14:11-0500 Body mass index (BMI) [Ratio] 41.02 kg/m2 Miranda Arcos PA Work Phone: [facility] 06-21-2023 14:11-0500 Body weight 108.41 kg Miranda Arcos PA Work Phone: [facility] 06-21-2023 14:11-0500 Diastolic blood pressure 72 mm[Hg] Miranda Arcos PA Work Phone: [facility] 06-21-2023 14:11-0500 Systolic blood pressure 120 mm[Hg] Miranda Arcos PA Work Phone: [facility] 02-20-2023 09:45-0400 Body height 162.56 cm Catherine Idalmis Other [facility] Other 02-20-2023 09:45-0400 Body mass index (BMI) [Ratio] 41.88 kg/m2 Catherine Idalmis Other [facility] Other 02-20-2023 09:45-0400 Body temperature 98.2 [degF] Catherine Idalmis Other [facility] Other 02-20-2023 09:45-0400 Body weight 110.68 kg Catherine Galindomond Other [facility] Other 02-20-2023 09:45-0400 Respiratory rate 18 /min Catherine Idalmis Other [facility] Other 02-20-2023 09:45-0400 SaO2% (BldA) [Mass fraction] 96 % Catherine Idalmis Other [facility] Other Encounters Encounter Date Encounter Type Care Provider Facility Start: 07-23-2023 Non-patient / Non-visit PHYSICIAN [facility] Physician [facility] Work Phone: Start: 07-23-2023 End: 07-25-2023 Evaluation and management of inpatient Munir Torrez Facility:[facility] Start: 07-23-2023 End: 07-25-2023 Evaluation and management of inpatient PHYSICIAN NO FAMILY [facility] Work Phone: Start: 07-22-2023 End: 07-23-2023 Emergency department patient visit NO PCP NO PCP [facility] Start: 07-22-2023 ambulatory Munir Torrez F acility:[facility] Start: 07-18-2023 End: 07-18-2023 ambulatory PRISCILLA IOANA [...] department patient visit NO PCP NO PCP [facility] Start: 02-20-2023 End: 02-20-2023 ambulatory Catherine Raygoza Other [facility] Other Start: 02-20-2023 Office outpatient ne w 20 minutes Catherine Raygoza [facility] Start: 08-10-2021 End: 08-10-[address] DOCTOR CAMREON Facility:[facility] Start: 01-26-2021 End: 01-26-[address] SERENITY SEAY Facility:[facility] Plan of Treatment Date Care Activity Detail Author Start: 07-25-[address] [facility] Start: 07-23-2023 Hospital admission [facility] Start: 07-18-2023 End: 07-18-2023 Patient encounter procedure 07/18/2023 9:10 AM EDT Consult [facility] [address] [address] Priscilla Roque, [address] [facility] [place] [address] [facility] Cytology Cervical or vaginal smear or scraping study Pap Smear Pathology and Cytology Routine Well woman exam with routine gynecological exam Ordered: 06/21/2023 [facility] Work Phone: Comment on above: Ordered: 06/21/2023 Patient Education Depression, Ad ult (DC) [facility] DC Instructions [facility] Work Phone: Patient referral [facility] Work Phone: Payers Date Payer Category Payer Self-pay 2021 Medicaid [employer] [facility] [place] [id number] 2021-Present [address] [address] [place] [address] [id number] 1994 Unknown [id number] 1994 Unknown [id number] [id number] 1994 Unknown [id number] [id number] 1994 Unknown [id number] [id number] 1994 Unknown [id number] [id number] 1994 Unknown [id number] [id number] 1994 Unknown [id number] [id number] 1959 Unknown [id number] 1959 Unknown [id number] Unknown [facility] [employer] [id number] Unknown [facility] [id number] Unknown [id number] [id number] Unknown [id number] [id number] Social History Date Type Detail Facility Unknown if ever smoked [facility] [employer] Other Sex Assigned At [facility] [employer] Other Tobacco smoking status TNIS Tobacco smoking consumption unknown [facility] Start: 1995 Sex Assigned At Not on file N [facility] Start: 07-23-2023 Tobacco smoking status NHIS Never smoked tobacco (finding) [facility] Start: 1995 Sex Assigned At Female [facility] Goals Date Patient Goal Desired Activity /State Functional Status Date Assessment Result Facility 07-25-2023 Functional status Patient at Baseline [facility] Work Phone: Mental Status Date Assessment Result Facility 07-25-2023 Cognitive function Cognitive Sta tus Patient at Baseline [facility] Work Phone: Discharge summary 07-25-2023 Note Date & Type Note Facility 07-25-2023 Discharge summary Note Date/Time July 25, 2023 9:24am [facility] [address] [place] [address] Discharge Summary Signed Patient: Bel Lane MR#: [id number] : 1995 Acct:[id number] Age/Sex: 28 / F Adm Date: 4 Loc: 1S Room: [address] [place] [address]: Munir Torrez MD Copies to: [...] was fired from her last job at [employer] and charged because of not checking IDs. She has a court appointment to attend on 07/26/23 for this. She got a new part-time job at [employer] but states this is not enough for [...] her 2 kids Employment: Part-time employee for [employer] Patient was treated with Pristiq. She tolerated [...] Instructions: Important Contact Information You can call [facility] at [phone] any time day or night if you have emergent questions or question regarding discharge instructions. If at any time you are feeling an increase inyour psychiatric symptoms, call your physician or behavioral healthcare provider. If any time you have thoughts of harming yourself or others contact one of the following: Call 8 (available 28/11) Crisis Text Line (available 28/11) text 4HOPE to [phone] [facility] Hope Line (available 8 a.m. Midnight) call [phone] ([phone]) Regular Diet No Activity Restrictions Instructions: Depression, Adult (DC), [facility] DC Instructions Prescriptions: New desvenlafaxine succinate 25 mg Tablet Extended Release 24 Hr 25 mg PO DAILY 30 Days Qty: 30 0RF Continued valacyclovir 500 mg tablet 500 mg PO DAILY Follow Up: [facility] [Other] (Please contact for medical needs or concerns) [facility] [Outside] ( medical case manager: Monday07/26/23, you will receive a discharge [...] <Electronically signed by Ryan Quinones MD> 07/25/23 1204 [facility] Work Phone: Progress note 07-24-2023 Note Date & Type Note Facility 07-24-2023 Progress note Note Date/Time July 24, 2023 11:54am [facility] [address] [place] [address] Psychiatry Progress Note Signed Patient: Bel Lane MR#: [id number] : 1995 Acct:[id number] Age/Sex: 28 / F Adm Date: 4 Loc: 1S Room: [address] [place] [address] Type : ADM IN Attending Dr: Munir [...] <Electronically signed by Ryan Quinones MD> 07/24/23 4726 [facility] Work Phone: History and physical note 07-23-2023 Note Date & Type Note Facility 07-23-2023 History and physi tiesha note Note Date/Time July 23, 2023 1:17pm [facility] [address] [place] [address] Psychiatry H&P Signed Patient: Bel Lane MR#: [id number] : 1995 Acct:[id number] Age/Sex: 28 / F Adm Date: 4 Loc: Room: [address] [place] [address] Type: ADM IN Attending Dr: Munir Torrez [...] was fired from her last job at [employer] and charged because of not checking IDs. She has a court appointment to attend on 07/26/23 for this. She got a new part-time job at [employer] but states this is not enough for [...] her 2 kids Employment: Part-time employee for [employer] Review of symptoms: Constitutional: Denies chills and [...] HI, and [facility]: fair Judgment: fair [facility] Medical History (Updated 07/23/23 @ 12:20 [...] signed by Munir Torrez MD> 07/23/23 1317 [facility] Work Phone: History of Present illness Narrative [...] disorder 10/11/2017 Bipolar affective disorder, mixed (HCC) ([facility]/HCC) 10/11/2017 Resolved Ambulatory Problems Diagnosis Date Noted [...] nursing note reviewed. Exam conducted with a farm operations technical director present. Vitals: Estimated body mass index is [...] of: DINA Kim documented in this encounter [facility] Healthcare Evaluation note 02-20-2023 Note Date [...] Suspected COVID-19 virus infection (ICD-10 - Z20.822) [facility] Other Evaluation note Note Date & Type Note Facility Evaluation note Diagnosis Well woman exam with routine gynecological exam Routine gynecological examination documented in this encounter [facility] Healthcare Evaluation note Note Date & Type Note Facility Evaluation note Diagnosis Onset Date Depression acute [facility] Work Phone: History general Narrative - Reported Note Date & Type Note Facility History general Narrative - Reported Type Medical History HSV 1 Surgical History uterine ablation Surgical History tubal ligation Surgical History tonsilectomy Hospitalization History See Above [facility] Other Hospital Discharge instructions Note Date & Type Note Facility Hospital Discharge instructions Additional Instructions Important Contact Information You can call [facility] at [phone] any time day or night if you have emergent questions or question regarding discharge instructions. If at any time you are feeling an increase in your psychiatric symptoms, call your physician or behavioral healthcare provider. If any time you have thoughts of harming yourself or others contact one of the following: Call (available 28/11) Crisis Text Line (available 28/11) text 4HOPE to [phone] [facility] Hope Line (available 8 a.m. Midnight) call [phone] ([phone]) Regular Diet No Activity Restrictions [facility] Work Phone: Summary Purpose Family History No [...] and content) DATE CREATED AUTHOR 11/16/2021 [facility] pital DATE CREATED AUTHOR AUTHOR'S ORGANIZ ATION 07/19/2023 [facility] EPIC DATE CREATED AUTHOR AUTHOR'S ORGANIZ ATION 07/23/2023 [facility] DATE CREATED AUTHOR AUTHOR'S ORGANIZ ATION 08/23/2023 [facility] REASON FOR VISIT (unrecogniz ed [...] BE BASED ON THE PRIMARY CLINICAL RECORDS. [facility] [employer] provides no warranty or guarantee of the accuracy or completeness of information in this document.
[2023-08-28 06:38] LABS: Basophils Percent Auto 0.4 % (0.2-2.0); Eosinophils Absolute Auto 0.1 10^3/uL (0.0-0.7); Hematocrit 37.6 % (36.0-48.0); Hemoglobin 11.7 g/dL (12.0-16.0); Immature Granulocytes Abs Auto 0.02 10^3/uL (0.00-0.03); Immature Granulocytes Pct Auto 0.2 % (0.0-0.5); Lymphocytes Percent Auto 36.6 % (20.5-60.0); Mean Corpuscular HGB Conc 31.1 g/dL (29.9-35.2); Mean Corpuscular Hemoglobin 28.3 pg (26.7-34.0); Mean Corpuscular Volume 90.8 fL (81.0-99.0); Mean Platelet Volume 11.3 fL (9.5-13.5); Monocytes Absolute Auto 0.5 10^3/uL (0.3-0.8); Monocytes Percent Auto 5.8 % (1.7-12.0); Neutrophils Absolute Auto 4.5 10^3/uL (1.4-6.5); Platelet Count 209 10^3/uL (150-450); Red Blood Count 4.14 10^6/uL (4.20-5.40); Red Cell Distribution Width 13.2 % (11.0-15.0); White Blood Count 8.1 10^3/uL (4.0-11.0)
[2023-08-28 06:48] LABS: HCG Quantitative <1 mIU/mL
--- NOTE | 2023-08-28 06:53 | PC.NURSE ---
Patient states that back in July she wrote letters to her kids and family members. She was [place] a bridge and was going to jump off but was stopped by police. She was placed at [facility] for a 72 hours hold and was released. She has been in counseling and started on medications. She states that suicidal thoughts have subsided.
[2023-08-28] MEDS: LACTATED RINGER'S SOLUTION 1,000 ML 50 ML IV ×3 (07:08→10:32)
[2023-08-28] MEDS: CEFAZOLIN SODIUM/DEXTROSE,ISO 2 GM/50 ML PIGGYBACK IV ×3 (07:34→20:17)
[2023-08-28] MEDS: LACTATED RINGER'S SOLUTION 1,000 ML 125 ML IV ×2 (13:48→21:35)
[2023-08-28] MEDS: KETOROLAC TROMETHAMINE 30 MG/ML VIAL IVP (15:39)
[2023-08-28] MEDS: OXYCODONE HCL/ACETAMINOPHEN 5MG/325MG 2 TAB PO ×2 (15:39→23:08)
[2023-08-28] MEDS: ONDANSETRON PF 4 MG/2 ML VIAL IV (16:53)
[2023-08-29 04:02] VITALS: BP 127/67; PULSE 92; TEMP 36.8; O2SAT 95
[2023-08-29 05:47] LABS: Basophils Percent Auto 0.1 % (0.2-2.0); Eosinophils Percent Auto 0.1 % (0.9-7.0); Hematocrit 30.8 % (36.0-48.0); Hemoglobin 9.8 g/dL (12.0-16.0); Immature Granulocytes Abs Auto 0.04 10^3/uL (0.00-0.03); Immature Granulocytes Pct Auto 0.3 % (0.0-0.5); Lymphocytes Absolute Auto 2.5 10^3/uL (1.2-3.8); Lymphocytes Percent Auto 19.4 % (20.5-60.0); Mean Corpuscular HGB Conc 31.8 g/dL (29.9-35.2); Mean Corpuscular Hemoglobin 28.3 pg (26.7-34.0); Mean Platelet Volume 11.5 fL (9.5-13.5); Monocytes Absolute Auto 0.8 10^3/uL (0.3-0.8); Monocytes Percent Auto 6.1 % (1.7-12.0); Neutrophils Absolute Auto 9.4 10^3/uL (1.4-6.5); Platelet Count 184 10^3/uL (150-450); Red Blood Count 3.46 10^6/uL (4.20-5.40); Red Cell Distribution Width 13.4 % (11.0-15.0); White Blood Count 12.7 10^3/uL (4.0-11.0)
--- OUTSIDE RECORDS SUMMARY | 2023-08-29 06:15 | XMS_ITS | CCD ---
Author Organization [facility] Care Team Providers Care Director Skills Name Role Phone NISHA, DR LORENZ Primary [...] Admit Provider MD Munir Torrez Attending Provider [phone] Munir Torrez Admitting Unavailab le NO FAMILY, PHYSICIAN Primary Care Unavailable Ryan Quinones Attending Unavailable Munir Torrez Admitting Unavailab Munir Hartman Attending Unavailab le NO FAMILY, PHYSICIAN Primary Care Unavailable Medications Current Medications Medication Drug Class(es) Dates Sig (Normalized) Sig (Original) [id number] 200 actuat albuterol 0.09 mg/actuat metered dose [...] 07-23-2023 Cholesterol [Mass/Vol] 162 mg/dL Normal 140-200 [facility] Comment on above: Chol less than 200 m g/dl low riskChol 201-239 mg/dl borderline riskChol 240 mg/dl and greater high risk Order Comment: FASTI NG Y Result Comment: Chol less than 200 mg/dl low risk Chol 201-239 mg/dl borderline risk Chol 240 mg/dl and greater high risk Performed By: #### V [id number], LIPID, TSH3 wRFLX #### [address] Cholesterol in LDL Calc [Mas s/Vol]Ordered By: Munir Torrez on 07-23-2023 Cholesterol in LDL [Mass/Vol] 100 mg/dL 0-100 [facility] Comment on above: LDL ATP III CLASSIFI CATIONLDL less than 100 mg/dL OptimalLDL 100-129 mg/dL Near or above optimalLDL 130-159 mg/dL Borderline highLDL 160-189 mg/dL HighLDL greater than 189 mg/dL Very high Cholesterol in VLDL Calc [Ma ss/Vol]Ordered By: Munir Torrez on 07-23-2023 Cholesterol in VLDL [Mass/Vol] 17 mg/dL [facility] ECG 12 lead ECGon 07-23-20[address] [facility] Main [place] [address] [place] [address] Electrocardiograph Report Signed Patient: Bel Lane MR#: [id number] : 1995 Acct:[id number] Age/Sex: 28 / F ADM Date: 07/23/23 Loc: Room: [address] [place] [address] Type: ADM IN Attending Dr: Munir Torrez [...] : 443 ms Sinus rhythm with short ID Borderline ECG When compared with ECG of 23-JUL-2023 13:36, (Unconfirmed) Nonspecific T wave abnormality now evident in Anterior leads Confirmed by Raymond Rico ([id number]) on 07/24/2023 2:24:13 PM Referred By: Electronically Signed By:Raymond Rico Transcribed By: MUS Signed By Raymond Rico MD 07/24/23 1424 Normal [facility] Lipid Panelon 07-23-2023 LDL Cholesterol,Calculated 100 mg/dL Normal 0-100 [facility] Comment on above: Order Comment: ERVIN Arora Result Comment: LDL ATP III CLASSIFICATION LDL less than 100 mg/dL Optimal LDL 100-129 mg/dL Near or above optimal LDL 130-159 mg/dL Borderline high LDL 160-189 mg/dL High LDL greater than 189 mg/dL Very high Performed By: #### V [id number], LIPID, TSH3 wRFLX #### [facility] [address] Triglyceride w/Reflex 88 mg/dL Normal 0-149 [facility] Comment on above: Order Comment: ERVIN DIAZ Y Result Comment: TRIG ATP III CLASSIFICATION TRIG less than 150 mg/dL Normal TRIG 150-199 mg/dL Borderline high TRIG 200-500 mg/dL High TRIG greater than 500 mg/dL Very high Standard traceable to the Center for Disease Conrtrol and Prevention (CDC) test method. Performed By: #### V [id number], LIPID, TSH3 wRFLX #### [facility] [address] VLDL CHOLESTEROL 17 mg/dL Normal [facility] Comment on above: Order Comment: FASTI NG Y Performed By: #### V [id number], LIPID, TSH3 wRFLX #### [address] Serum or plasma high density lipoprotein (HDL) cholesterol measurementOrdered By: Munir Torrez on 07-23-2023 Cholesterol in HDL [Mass/Vol] 44 mg/dL Normal 23-92 [facility] Comment on above: HDL CHOL ATP-III CLA SSIFICATION Cardiovascular RiskHDL > or equal to 60 mg/dL LOWHDL < 40 mg/dL HIGH Order Comment: FASTI NG Y Result Comment: HDL CHOL ATP-III CLASSIFICATION Cardiovascular Risk HDL > or equal to 60 mg/dL LOW HDL < 40 mg/dL HIGH Performed By: #### V [id number], LIPID, TSH3 wRFLX #### [address] Serum or plasma total choles terol/high density lipoprotein (HDL) cholesterol mass ratOrdered By: Munir Torrez on 07-23-2023 Cholesterol.total/Chol esterol in HDL [Mass ratio] 3.7 {ratio} Normal <5.0 [facility] Comment on above: Order Comment: FASTI NG Y Performed By: #### V [id number], LIPID, TSH3 wRFLX #### [address] Thyroid Stim Hormone w/Rflxo n 07-23-2023 Thyroid Stim Hormone w/Rflx 1.60 u[iU]/mL Normal 0.45-5.33 [facility] Comment on above: Order Comment: FASTI NG Y Performed By: #### V [id number], LIPID, TSH3 wRFLX #### [facility] [address] [place] [id number] [facility] Thyrotropin [Units/volume] i n Serum or PlasmaOrdered By: Munir Torrez on 07-23-2023 TSH Qn 1.60 m[IU]/L 0.45-5.33 [facility] Triglyceride [Mass/volume] i n Serum or PlasmaOrdered By: Munir Torrez on 07-23-2023 Triglyceride [Mass/Vol] 88 mg/dL 0-149 [facility] Comment on above: TRIG ATP III CLASSIF ICATIONTRIG less than 150 mg/dL NormalTRIG 150-199 mg/dL Borderline highTRIG 200-500 mg/dL High TRIG greater than 500 mg/dL Very highStandard traceable to the Center for Disease Conrtrol and Prevention (CDC) test method. Vitamin D 25 Hydroxy Totalon 07-23-2023 Vitamin D 25 Hydroxy Total 16.1 ng/mL Low 30-100 [facility] Comment on above: Order Comment: ERVIN Arora Result Comment: MALIHA MIN D STATUS 25(OH)VITAMIN D RANGE (ng/mL) Deficient <20 Insufficient 20 to <30 Sufficient 30 to 100 Reference: Lisa Thrasher, Estrella TORRES, et al. Evaluation,treatment, and prevention of vitamin D deficiency; an Endocrine Society clinical practice guideline. JCEM. 2010; 96(7):1911-30. PERFORMED BY: [place] [address] PATHOLOGIST TIPPLE OILER BART WHITFIELD M.D. Performed By: #### V [id number], LIPID, TSH3 wRFLX #### [place] [id number] [facility] Vitamin D+Metabolites [Mass/ volume] in Serum or PlasmaOrdered By: Munir Torrez on 07-23-2023 Vitamin D+Metabolites [Mass/Vol] 16.1 ng/mL 30-100 [facility] Comment on above: VITAMIN D STATUS 25( [place])VITAMIN D RANGE (ng/mL) Deficient <20 Insufficient 20 to <30Sufficient 30 to 100Reference: Lisa Thrasher, Estrella TORRES, et al. Evaluation,treatment, and prevention of vitamin D deficiency; an Endocrine Society clinical practice guideline. JCEM. 2010; 96(7):1911-30. ACETAMINOPHENon 07-22-2023 Acetaminophen [Mass/Vol] 4.9 ug/mL Low 10.0-30.0 [facility] Comment on above: Result Comment: Refe rence ranges are for therapeutic limits. Performed By: #### C FREDRICK, 3298-7, 5643-2, [facility], 4024-6, THYR #### [facility] ([id number]) [address] [place] [address] 51288 CBC AND AUTO DIFFon 07-22-19 ABSOLUTE BASOPHIL 0.0 X10E9/L Normal 0.0-0.2 [facility] Comment on above: Performed By: #### Malachi ALCALA, [facility]8-7, 5643-2, [facility], [facility], THYR #### [facility] ([id number]) [address] [place] [address] 90263 ABSOLUTE NEUTROPHIL 9.1 X10E9/L High 1.5-6.6 [facility] Comment on above: Performed By: #### Malachi ALCALA, 3298-7, 5643-2, [facility], 4026, THYR #### [facility] ([id number]) [address] [place] [address] 56311 Basophils/100 WBC (Bld) 0.3 % Normal [facility] Comment on above: Performed By: #### C BCA, 3298-7, 5643-2, [facility], 4024-6, THYR #### [facility] ([id number]) [address] [place] [address] 82498 Eosinophils (Bld) [#/Vol] 0.0 10*3/uL Normal 0.0-0.4 [facility] Comment on above: Performed By: #### Malachi ALCALA, 3298-7, 5643-2, [facility], 4024-6, THYR #### [facility] ([id number]) [address] [place] [address] 03530 Eosinophils/100 WBC (Bld) 0.4 % Normal [facility] Comment on above: Performed By: #### C FREDRICK, 3298-7, 5643-2, CMP, 4024-6, THYR #### [facility] ([id number]) [address] [place] [address] 19626 Erythrocyte distribution width (RBC) [Ratio] 13.6 % Normal 11.5-15.0 [facility] Comment on above: Performed By: #### C FREDRICK, 3297-7, 5643-2, CMP, 4024-6, THYR #### [facility] ([id number]) [address] [place] [address] 81351 Hematocrit (Bld) [Volume fraction] 37.1 % Normal 35-47 [facility] Comment on above: Performed By: #### C FREDRICK, 3297-7, 5643-2, CMP, 4024-6, THYR #### [facility] ([id number]) [address] [place] [address] 09389 Hemoglobin (Bld) [Mass/Vol] 12.3 g/dL Normal 11.7-15.5 [facility] Comment on above: Performed By: #### C FREDRICK, 3297-7, 5643-2, CMP, 4024-6, THYR #### [facility] ([id number]) [address] [place] [address] 14199 Lymphocytes (Bld) [#/Vol] 1.9 10*3/uL Normal 1.0-3.5 [facility] Comment on above: Performed By: #### C FREDRICK, 3298-7, 5643-2, CMP, 4024-6, THYR #### [facility] ([id number]) [address] [place] [address] 52910 Lymphocytes/100 WBC (Bld) 16.0 % Normal [facility] Comment on above: Performed By: #### Malachi ALCALA, 8-7, 5643-2, CMP, 4024-6, THYR #### [facility] ([id number]) [address] [place] [address] 60265 MCH (RBC) [Entitic mass] 28.1 pg Normal 27-34 [facility] Comment on above: Performed By: #### Malachi ALCALA, 3297-7, 5643-2, CMP, 4024-6, THYR #### [facility] ([id number]) [address] [place] [address] 02426 MCHC (RBC) [Mass/Vol] 33.1 g/dL Normal 32-36 [facility] Comment on above: Performed By: #### Malachi ALCALA, 3297, 5643-2, CMP, 4024-6, THYR #### [facility] ([id number]) [address] [place] [address] 38661 MCV (RBC) [Entitic vol] 85 fL Normal 80-100 [facility] Comment on above: Performed By: #### Malachi ALCALA, 7, 5643-2, CMP, 4024-6, THYR #### [facility] ([id number]) [address] [place] [address] 33826 Monocytes (Bld) [#/Vol] 0.5 10*3/uL Normal 0-0.9 [facility] Comment on above: Performed By: #### Malachi ALCALA, 3297-7, 5643-2, CMP, 4024-6, THYR #### [facility] ([id number]) [address] [place] [address] 07265 Monocytes/100 WBC (Bld) 4.5 % Normal [facility] Comment on above: Performed By: #### Malachi ALCALA, 3297-7, 5643-2, CMP, 4024-6, THYR #### [facility] ([id number]) [address] [place] [address] 26713 Neutrophils/100 WBC (Bld) 78.8 % Normal [facility] Comment on above: Performed By: #### Malachi ALCALA, 3298-7, 5643-2, CMP, 4024-6, THYR #### [facility] ([id number]) [address] [place] [address] 48992 Platelet mean volume (Bld) [Entitic vol] 9.8 fL Normal 7-12 [facility] Comment on above: Performed By: #### Malachi ALCALA, 3297-7, 5643-2, CMP, 4024-6, THYR #### [facility] ([id number]) [address] [place] [address] 71348 Platelets (Bld) [#/Vol] 211 10*3/uL Normal 150-450 [facility] Comment on above: Performed By: #### Malachi ALCALA, 3297-7, 5643-2, CMP, 4024-6, THYR #### [facility] ([id number]) [address] [place] [address] 41289 RBC COUNT 4.37 X10E12/L Normal 3.80-5.20 [facility] Comment on above: Performed By: #### Malachi ALCALA, 3297-7, 5643-2, CMP, 4024-6, THYR #### [facility] ([id number]) [address] [place] [address] 37502 WBC (Bld) [#/Vol] 11.6 10*3/uL High 4.0-11.0 [facility] Comment on above: Performed By: #### Malachi ALCALA, 3298-7, 5643-2, CMP, 4024-6, THYR #### [facility] ([id number]) [address] [place] [address] 99271 COMPREHENSIVE METABOLIC PANE Yuriy 07-22-2023 Albumin [Mass/Vol] 4.7 g/dL Normal 3.2-5.3 [facility] Comment on above: Performed By: #### 2 106-3 #### [facility] ([id number]) [address] [place] [address] 41444 ALP [Catalytic activity/Vol] 66 U/L Normal 39-130 [facility] Comment on above: Performed By: #### 2 106-3 #### [facility] ([id number]) [address] [place] [address] 01849 ALT [Catalytic activity/Vol] 19 U/L Normal 0-31 [facility] Comment on above: Performed By: #### 2 106-3 #### [facility] ([id number]) [address] [place] [address] 52871 Anion gap [Moles/Vol] 8 mmol/L Normal 5-15 [facility] Comment on above: Performed By: #### 2 106-3 #### [facility] ([id number]) [address] [place] [address] 07467 AST [Catalytic activity/Vol] 21 U/L Normal 0-41 [facility] Comment on above: Performed By: #### 2 106-3 #### [facility] ([id number]) [address] [place] [address] 49720 Bilirubin [Mass/Vol] 0.5 mg/dL Normal 0.3-1.2 [facility] Comment on above: Performed By: #### 2 106-3 #### [facility] ([id number]) [address] [place] [address] 21587 Calcium [Mass/Vol] 9.2 mg/dL Normal 8.5-10.5 [facility] Comment on above: Performed By: #### 2 106-3 #### [facility] ([id number]) [address] [place] [address] 39048 Chloride [Moles/Vol] 106 mmol/L Normal 98-109 [facility] Comment on above: Performed By: #### 2 106-3 #### [facility] ([id number]) [address] [place] [address] 81363 CO2 [Moles/Vol] 25 mmol/L Normal 22-32 [facility] Comment on above: Performed By: #### 2 106-3 #### [facility] ([id number]) [address] [place] [address] 67370 Creatinine [Mass/Vol] 0.71 mg/dL Normal 0.40-1.00 [facility] Comment on above: Result Comment: METH OD TRACEABLE TO IDMS STANDARD Performed By: #### 2 106-3 #### [facility] ([id number]) [address] [place] [address] [place] [address] eGFR (CKD-EPI) NON-RACE DEPENDENT >90 Normal >59 [facility] Comment on above: Result Comment: Reported eGFR is based on the CKD-EPI 2020 equation that does not use a race coefficient. Performed By: #### 2 106-3 #### [facility] ([id number]) [address] [place] [address] 39395 Glucose [Mass/Vol] 92 mg/dL Normal 65-99 [facility] Comment on above: Performed By: #### 2 106-3 #### [facility] ([id number]) [address] [place] [address] 66134 Potassium [Moles/Vol] 3.7 mmol/L Normal 3.5-5.0 [facility] Comment on above: Performed By: #### 2 106-3 #### [facility] ([id number]) [address] [place] [address] 80837 Protein [Mass/Vol] 8.3 g/dL High 6.0-8.0 [facility] Comment on above: Performed By: #### 2 106-3 #### [facility] ([id number]) [address] [place] [address] 20504 Sodium [Moles/Vol] 139 mmol/L Normal 134-146 [facility] Comment on above: Performed By: #### 2 106-3 #### [facility] ([id number]) [address] [place] [address] 21438 Urea nitrogen [Mass/Vol] 12 mg/dL Normal 5-23 [facility] Comment on above: Performed By: #### 2 106-3 #### [facility] ([id number]) [address] [place] [address] 19363 DRUG SCREEN, URINEon 024 AMPHETAMINE/METHAMP Negative Normal NEG [facility] Comment on above: Result Comment: AMPH /METH screening cut off = 1000 ng/mL Performed By: #### 2 106-3 #### [facility] ([id number]) [address] [place] [address] 23160 BARBITURATES Negative Normal NEG [facility] Comment on above: Result Comment: Alicia iturates screening cut off value = 200 ng/mL Performed By: #### 2 106-3 #### [facility] ([id number]) [address] [place] [address] 98043 BENZODIAZEPINES Positive Abnormal NEG [facility] Comment on above: Result Comment: Conf irmation available upon request. Benzodiazepines screening cut off value = 200 ng/mL Performed By: #### 2 106-3 #### [facility] ([id number]) [address] [place] [address] 39139 CANNABINOIDS Positive Abnormal NEG [facility] Comment on above: Result Comment: Conf irmation available upon request. Cannabinoids/THC screening cut off value = 50 ng/mL Performed By: #### 2 106-3 #### [facility] ([id number]) [address] [place] [address] 63967 COCAINE METABOLITE Negative Normal NEG [facility] Comment on above: Result Comment: Coca ine screening cut off value = 300 ng/mL Performed By: #### 2 106-3 #### [facility] ([id number]) [address] [place] [address] 05164 ECSTASY Negative Normal NEG [facility] Comment on above: Result Comment: Ecst asy screening cut off value = 500 ng/mL This report is intended for use in clinical monitoring or management of patients. Performed By: #### 2 106-3 #### [facility] ([id number]) [address] [place] [address] 47549 METHADONE Negative Normal NEG [facility] Comment on above: Result Comment: Meth adone screening cut off value = 300 ng/mL. Performed By: #### 2 106-3 #### [facility] ([id number]) [address] [place] [address] 33207 OPIATES Negative Normal NEG [facility] Comment on above: Result Comment: Opia chadwick screening cut off value = 300 ng/mL NOTE: This test is used for the detection of codeine, hydrocodone (>1000 ng/mL), morphine and hydromorphone (>900 ng/mL) in urine. Performed By: #### 2 106-3 #### [facility] ([id number]) [address] [place] [address] [place] [address] OXYCODONE Negative Normal NEG [facility] Comment on above: Result Comment: Oxyc odone screening cut off value = 300 ng/mL NOTE: This test is used for the detection of oxycodone and oxymorphone in urine. Performed By: #### 2 106-3 #### [facility] ([id number]) [address] [place] [address] 94493 PHENCYCLIDINE Negative Normal NEG [facility] Comment on above: Result Comment: Phen cyclidine screening cut off value = 25 ng/mL Performed By: #### 2 106-3 #### [facility] ([id number]) [address] [place] [address] 81496 ETHANOLon 07-22-2023 Ethanol [Mass/Vol] mg/dL Normal 0.00-0.08 [facility] Comment on above: Result Comment: This report is intended for use in clinical monitoring or management of patients. Performed By: #### 2 106-3 #### [facility] ([id number]) [address] [place] [address] 84399 HCG ( test) Ql (U)o n 07-22-2023 Beta HCG ( test) Ql (U) Negative Normal NEG [facility] Comment on above: Performed By: #### 2 106-3 #### [facility] ([id number]) [address] [place] [address] 90592 Salicylates [Mass/Vol]on SALICYLATE <4.0 Normal 2.0-25.0 [facility] Comment on above: Result Comment: Refe rence ranges are for therapeutic limits. Performed By: #### 2 106-3 #### [facility] ([id number]) [address] [place] [address] 24012 THYROID PROFILEon 07-22-2023 Free T4 [Mass/Vol] 0.77 ng/dL Normal 0.61-1.60 [facility] Comment on above: Performed By: #### 2 106-3 #### [facility] ([id number]) [address] [place] [address] 20711 TSH 0.67 uIU/mL Normal 0.49-4.67 [facility] Comment on above: Performed By: #### 2 106-3 #### [facility] ([id number]) [address] [place] [address] 65606 URN MACROSCOPIC NURon 2023 BILIRUBIN BRYAN Negative Normal NEG [facility] Comment on above: Performed By: #### N UM #### [facility] ([id number]) [address] [place] [address] 14083 BLOOD/HGB BRYAN Negative Normal NEG [facility] Comment on above: Performed By: #### N UM #### [facility] ([id number]) [address] [place] [address] 65816 GLUCOSE BRYAN Negative Normal NEG [facility] Comment on above: Performed By: #### N UM #### [facility] ([id number]) [address] [place] [address] 12974 KETONES BRYAN 15 mg/dL Abnormal NEG [facility] Comment on above: Performed By: #### N UM #### [facility] ([id number]) [address] [place] [address] 70344 LEUKOCYTE ESTERASE BRYAN Trace Abnormal NEG [facility] Comment on above: Performed By: #### N UM #### [facility] ([id number]) [address] [place] [address] 49634 NITRITE BRYAN Negative Normal NEG [facility] Comment on above: Performed By: #### N UM #### [facility] ([id number]) [address] [place] [address] 52119 PH BRYAN 6.0 Normal 5.0-8.5 [facility] Comment on above: Performed By: #### N UM #### [facility] ([id number]) [address] [place] [address] 22185 PROTEIN BRYAN Negative Normal NEG [facility] Comment on above: Performed By: #### N UM #### [facility] ([id number]) [address] [place] [address] 50821 SPECIFIC GRAVITY BRYAN 1.025 Normal 1.003-1.035 [facility] Comment on above: Performed By: #### N UM #### [facility] ([id number]) [address] [place] [address] 54587 UROBILINOGEN BRYAN 0.2 eu/dL Normal <1.1 [facility] Comment on above: Performed By: #### N UM #### [facility] ([id number]) [address] [place] [address] 23795 BASIC METABOLIC PANLon 05-11 Anion gap [Moles/Vol] 8 mmol/L Normal 5-15 [facility] Comment on above: Performed By: #### B MP, CBCA, PINR, 77302-6 #### [facility] ([id number]) [address] [place] [address] 72419 Calcium [Mass/Vol] 9.0 mg/dL Normal 8.5-10.5 [facility] Comment on above: Performed By: #### B MP, CBCA, PINR, 60434-8 #### [facility] ([id number]) [address] [place] [address] 66743 Chloride [Moles/Vol] 105 mmol/L Normal 98-109 [facility] Comment on above: Performed By: #### B MP, CBCA, PINR, 63425-6 #### [facility] ([id number]) [address] [place] [address] 63164 CO2 [Moles/Vol] 26 mmol/L Normal 22-32 [facility] [facility] Comment on above: Performed By: #### B MP, CBCA, PINR, 75012-0 #### [facility] ([id number]) [address] [place] [address] 88224 Creatinine [Mass/Vol] 0.78 mg/dL Normal 0.40-1.00 [facility] Comment on above: Result Comment: METH OD TRACEABLE TO IDMS STANDARD Performed By: #### B MP, CBCA, PINR, 90088-3 #### [facility] ([id number]) [address] [place] [address] 36003 eGFR (CKD-EPI) NON-RACE DEPENDENT >90 Normal >59 [facility] Comment on above: Result Comment: Reported eGFR is based on the CKD-EPI 2020 equation that does not use a race coefficient. Performed By: #### B MP, CBCA, PINR, 57923-1 #### [facility] ([id number]) [address] [place] [address] 16775 Glucose [Mass/Vol] 103 mg/dL High 65-99 [facility] Comment on above: Performed By: #### B MP, CBCA, PINR, 70848-2 #### [facility] ([id number]) [address] [place] [address] 63499 Potassium [Moles/Vol] 3.4 mmol/L Low 3.5-5.0 [facility] Comment on above: Performed By: #### B MP, CBCA, PINR, 35921-9 #### [facility] ([id number]) [address] [place] [address] 82430 Sodium [Moles/Vol] 139 mmol/L Normal 134-146 [facility] Comment on above: Performed By: #### B MP, CBCA, PINR, 92133-9 #### [facility] ([id number]) [address] [place] [address] 64629 Urea nitrogen [Mass/Vol] 11 mg/dL Normal 5-23 [facility] Comment on above: Performed By: #### B MP, CBCA, PINR, 55077-1 #### [facility] ([id number]) [address] [place] [address] 56395 CBC AND AUTO DIFFon 05-11-19 24 ABSOLUTE BASOPHIL 0.0 X10E9/L Normal 0.0-0.2 [facility] Comment on above: Performed By: #### B MP, CBCA, PINR, 15333-6 #### [facility] ([id number]) [address] [place] [address] 03843 ABSOLUTE NEUTROPHIL 5.5 X10E9/L Normal 1.5-6.6 [facility] Comment on above: Performed By: #### B MP, CBCA, PINR, 98346-3 #### [facility] ([id number]) [address] [place] [address] 47592 Basophils/100 WBC (Bld) 0.3 % Normal [facility] Comment on above: Performed By: #### B MP, CBCA, PINR, 30540-0 #### [facility] ([id number]) [address] [place] [address] 45900 Eosinophils (Bld) [#/Vol] 0.3 10*3/uL Normal 0.0-0.4 [facility] Comment on above: Performed By: #### B MP, CBCA, PINR, 95411-5 #### [facility] ([id number]) [address] [place] [address] 12328 Eosinophils/100 WBC (Bld) 2.9 % Normal [facility] Comment on above: Performed By: #### B MP, CBCA, PINR, 74462-2 #### [facility] ([id number]) [address] [place] [address] 60764 Erythrocyte distribution width (RBC) [Ratio] 14.0 % Normal 11.5-15.0 [facility] Comment on above: Performed By: #### B MP, CBCA, PINR, 74894-7 #### [facility] ([id number]) [address] [place] [address] 30000 Hematocrit (Bld) [Volume fraction] 33.6 % Low 35-47 [facility] Comment on above: Performed By: #### B MP, CBCA, PINR, 26769-0 #### [facility] ([id number]) [address] [place] [address] 60317 Hemoglobin (Bld) [Mass/Vol] 11.3 g/dL Low 11.7-15.5 [facility] Comment on above: Performed By: #### B MP, CBCA, PINR, 76017-1 #### [facility] ([id number]) [address] [place] [address] 75762 Lymphocytes (Bld) [#/Vol] 2.9 10*3/uL Normal 1.0-3.5 [facility] Comment on above: Performed By: #### B MP, CBCA, PINR, 89720-7 #### [facility] ([id number]) [address] [place] [address] 30282 Lymphocytes/100 WBC (Bld) 30.6 % Normal [facility] Comment on above: Performed By: #### B MP, CBCA, PINR, 83571-5 #### [facility] ([id number]) [address] [place] [address] 33368 MCH (RBC) [Entitic mass] 28.3 pg Normal 27-34 [facility] Comment on above: Performed By: #### B MP, CBCA, PINR, 97851-7 #### [facility] ([id number]) [address] [place] [address] 94250 MCHC (RBC) [Mass/Vol] 33.6 g/dL Normal 32-36 [facility] Comment on above: Performed By: #### B MP, CBCA, PINR, 51736-9 #### [facility] ([id number]) [address] [place] [address] 61810 MCV (RBC) [Entitic vol] 84 fL Normal 80-100 [facility] Comment on above: Performed By: #### B MP, CBCA, PINR, 49753-4 #### [facility] ([id number]) [address] [place] [address] 42572 Monocytes (Bld) [#/Vol] 0.7 10*3/uL Normal 0-0.9 [facility] Comment on above: Performed By: #### B MP, CBCA, PINR, 16234-2 #### [facility] ([id number]) [address] [place] [address] 64914 Monocytes/100 WBC (Bld) 7.7 % Normal [facility] Comment on above: Performed By: #### B MP, CBCA, PINR, 22261-8 #### [facility] ([id number]) [address] [place] [address] 22933 Neutrophils/100 WBC (Bld) 58.5 % Normal [facility] Comment on above: Performed By: #### B MP, CBCA, PINR, 05199-8 #### [facility] ([id number]) [address] [place] [address] 41126 Platelet mean volume (Bld) [Entitic vol] 9.9 fL Normal 7-12 [facility] Comment on above: Performed By: #### B MP, CBCA, PINR, 68869-0 #### [facility] ([id number]) [address] [place] [address] 27993 Platelets (Bld) [#/Vol] 210 10*3/uL Normal 150-450 [facility] Comment on above: Performed By: #### B MP, CBCA, PINR, 92248-1 #### [facility] ([id number]) [address] [place] [address] 84019 RBC COUNT 3.99 X10E12/L Normal 3.80-5.20 [facility] Comment on above: Performed By: #### B MP, CBCA, PINR, 17568-6 #### [facility] ([id number]) [address] [place] [address] 67412 WBC (Bld) [#/Vol] 9.4 10*3/uL Normal 4.0-11.0 [facility] Comment on above: Performed By: #### B MP, CBCA, PINR, 41164-3 #### [facility] ([id number]) [address] [place] [address] 91641 HCG ( test) Ql (U)o n 05-11-2023 Beta HCG ( test) Ql (U) Negative Normal NEG [facility] Comment on above: Performed By: #### 2 106-3 #### [facility] ([id number]) [address] [place] [address] 88454 PROTIME AND INRon 05-11-2023 INR Coag (PPP) [Relative time] 1.1 {INR} Normal 0.8-1.1 [facility] Comment on above: Performed By: #### B MP, CBCA, PINR, 38426-1 #### [facility] ([id number]) [address] [place] [address] 36559 PT Coag (PPP) [Time] 12.7 s Normal 9.8-13.2 [facility] Comment on above: Result Comment: NEW REFERENCE RANGE Performed By: #### B MP, CBCA, PINR, 03386-1 #### [facility] ([id number]) [address] [place] [address] 54621 URN MACROSCOPIC NURon 2023 BILIRUBIN BRYAN Negative Normal NEG [facility] Comment on above: Performed By: #### N UM #### [facility] ([id number]) [address] [place] [address] 82173 BLOOD/HGB BRYAN Large Abnormal NEG [facility] Comment on above: Performed By: #### N UM #### [facility] ([id number]) [address] [place] [address] 52408 GLUCOSE BRYAN Negative Normal NEG [facility] Comment on above: Performed By: #### N UM #### [facility] ([id number]) [address] [place] [address] [place] [address] KETONES BRYAN Trace Abnormal NEG [facility] Comment on above: Performed By: #### N UM #### [facility] ([id number]) [address] [place] [address] 83534 LEUKOCYTE ESTERASE BRYAN Negative Normal NEG [facility] Comment on above: Performed By: #### N UM #### [facility] ([id number]) [address] [place] [address] 12302 NITRITE BRYAN Negative Normal NEG [facility] Comment on above: Performed By: #### N UM #### [facility] ([id number]) [address] [place] [address] 08471 PH BRYAN 6.5 Normal 5.0-8.5 [facility] Comment on above: Performed By: #### N UM #### [facility] ([id number]) [address] [place] [address] 43340 PROTEIN BRYAN Negative Normal NEG [facility] Comment on above: Performed By: #### N UM #### [facility] ([id number]) [address] [place] [address] [place] [address] SPECIFIC GRAVITY BRYAN 1.025 Normal 1.003-1.035 [facility] Comment on above: Performed By: #### N UM #### [facility] ([id number]) [address] [place] [address] [place] [address] UROBILINOGEN BRYAN 0.2 eu/dL Normal <1.1 [facility] Comment on above: Performed By: #### N UM #### [facility] ([id number]) [address] [facility] [place] [address] aPTT Coag (PPP) [Time]on aPTT Coag (Bld) [Time] 30 s Normal 26-37 [facility] Comment on above: Result Comment: NEW REFERENCE RANGE Performed By: #### B MP, CBCA, PINR, 91745-4 #### [facility] ([id number]) [address] [facility] [place] [address] COVID + FLU Quick Testingon 02-20-2023 SARS-CoV-2 (COVID-19) RNA TRE+probe Ql (Unsp spec) Negative [facility] [email or web address] Other COVID + FLU Quick Testing Negative [facility] Other Quick Strepon 02-20-2023 S. pyogenes Org specific cx Ql (Throat) Negative [facility] [email or web address] Other Quick Strep [facility] [email or web address] Other PAP ACOG PANEL 2: 21 to 29on 08-17-2021 . . Normal [facility] Comment on above: Performed By: #### 4 [id number] #### [facility] [address] [place] [address] Dr. Luis Thrasher Age Gdln ACOG Testing 21-29 Normal [facility] Comment on above: Performed By: #### 4 [id number] #### [facility] [address] [address] [address] Luis Thrasher DIAGNOSIS: Comment Normal [facility] Comment on above: Result Comment: NEGA TIVE FOR INTRAEPITHELIAL LESION OR MALIGNANCY. PREDOMINANCE OF COCCOBACILLI CONSISTENT WITH SHIFT IN VAGINAL WILMER IS PRESENT. Performed By: #### 4 [id number] #### [facility] [address] [place] [address] Dr. Luis Thrasher Methodology: Comment Normal [facility] Comment on above: Result Comment: This liquid based ThinPrep(R) pap test was screened with the use of an image guided system. Performed By: #### 4 [id number] #### [facility] [address] [place] [address] Dr. Luis Thrasher Note: Comment [facility] Comment on above: Result Comment: The Pap smear is a screening test designed to aid in the detection of premalignant and malignant conditions of the uterine cervix. It is not a diagnostic procedure and should not be used as the sole means of detecting cervical cancer. Both false-positive and false-negative reports do occur. . Performed By: #### 4 [id number] #### [facility] [address] [place] [address] Dr. Luis Thrasher Performed by: Comment Normal [facility] Comment on above: Result Comment: Cori Box, Bakery Supervisor (ASCP) Performed By: #### 4 [id number] #### [facility] [address] [place] [address] Dr. Luis Thrasher Reflex Criteria: Comment [facility] Comment on above: Result Comment: The HPV DNA reflex criteria were not met with this specimen result therefore, no HPV testing was performed. . Performed By: #### 4 [id number] #### [facility] [address] [place] [address] Dr. Luis Thrasher Specimen adequacy: Comment Normal [facility] Comment on above: Result Comment: Sati sfactory for evaluation. Endocervical and/or squamous metaplastic cells (endocervical component) are present. Performed By: #### 4 [id number] #### [facility] [address] [place] [address] Dr. Luis Thrasher PAP ACOG PANEL 2: 21 to 29on 02-02-2021 . . Normal [facility] Comment on above: Performed By: #### 4 [id number] #### [facility] [address] [place] [address] Dr. Luis Thrasher Age Gdln ACOG Testing - [facility] Comment on above: Performed By: #### 4 [id number] #### [facility] [address] [place] [address] Dr. Luis Thrasher DIAGNOSIS: Comment Abnormal [facility] Comment on above: Result Comment: EPIT HELIAL CELL ABNORMALITY. ATYPICAL SQUAMOUS CELLS OF UNDETERMINED SIGNIFICANCE (ASC-US). Performed By: #### 4 [id number] #### [facility] [address] [place] [address] Dr. Luis Thrasher Electronically signed by: Comment Normal [facility] Comment on above: Result Comment: Heena Velarde MD, Pathologist Performed By: #### 4 [id number] #### [facility] [address] [place] [address] Dr. Luis Thrasher HPV Aptima Negative Normal Negative [facility] Comment on above: Result Comment: This nucleic acid amplification test detects fourteen high-risk HPV types (16,18,31,33,35,39,45,51,52,56,58,59,66,68) without differentiation. Performed By: #### 4 [id number] #### [facility] [address] [place] [address] Dr. Luis Thrasher Methodology: Comment Normal [facility] Comment on above: Result Comment: This liquid based ThinPrep(R) pap test was screened with the use of an image guided system. Performed By: #### 4 [id number] #### [facility] [address] [place] [address] Dr. Luis Thrasher Note: Comment Normal [facility] Comment on above: Result Comment: The Pap smear is a screening test designed to aid in the detection of premalignant and malignant conditions of the uterine cervix. It is not a diagnostic procedure and should not be used as the sole means of detecting cervical cancer. Both false-positive and false-negative reports do occur. . Performed By: #### 4 [id number] #### [facility] [address] [place] [address] Dr. Luis Thrasher Pathologist Provided ICD10 Comment Normal [facility] Comment on above: Result Comment: [id number] Performed By: #### 4 [id number] #### [facility] [address] [place] [address] Dr. Luis Thrasher Performed by: Comment Normal [facility] Comment on above: Result Comment: Miranda Saab, Bakery Supervisor (ASCP) Performed By: #### 4 [id number] #### [facility] [address] [place], [place] [address] Dr. Luis Thrasher Recommendation: Comment Abnormal [facility] Comment on above: Result Comment: Sugg est follow up as clinically appropriate. Performed By: #### 4 [id number] #### [facility] [address] [place], [place] [address] Dr. Luis Thrasher Reflex Criteria: Comment Normal [facility] Comment on above: Result Comment: See below for HPV testing results. . Performed By: #### 4 [id number] #### [facility] [address] [place], [place] [address] Dr. Luis Thrasher Specimen adequacy: Comment Normal [facility] Comment on above: Result Comment: Sati sfactory for evaluation. Endocervical and/or squamous metaplastic cells (endocervical component) are present. Performed By: #### 4 [id number] #### [facility] [id number] Luis Thrasher Vital Signs Date Time Vital Sign Value Performing Clinician Facility 07-25-2023 07:30-0400 Body temperature 97.3 [degF] PHYSICIAN NO [facility] 07-25-2023 07:30-0400 Diastolic blood pressure 76 mm[Hg] PHYSICIAN NO [facility] 07-25-2023 07:30-0400 Heart rate 89 /min PHYSICIAN NO [facility] 07-25-2023 07:30-0400 Respiratory rate 18 /min PHYSICIAN NO [facility] 07-25-2023 07:30-0400 SaO2% (BldA) [Mass fraction] 100 % PHYSICIAN NO [facility] 07-25-2023 07:30-0400 Systolic blood pressure 109 mm[Hg] PHYSICIAN NO [facility] 07-24-2023 14:28-0400 Body height 162.56 cm PHYSICIAN NO [facility] 07-23-2023 02:24-0400 Body weight 104.32 kg PHYSICIAN NO [facility] 06-21-2023 14:11-0500 Body mass index (BMI) [Ratio] 41.02 kg/m2 Miranda Arcos PA Work Phone: [facility] 06-21-2023 14:11-0500 Body weight 108.41 kg Miranda Arcos PA Work Phone: [facility] 06-21-2023 14:11-0500 Diastolic blood pressure 72 mm[Hg] Miranda Arcos PA Work Phone: [facility] 06-21-2023 14:11-0500 Systolic blood pressure 120 mm[Hg] Miranda Arcos PA Work Phone: [facility] 02-20-2023 09:45-0400 Body height 162.56 cm Catherine Idalmis Other [facility] Other 02-20-2023 09:45-0400 Body mass index (BMI) [Ratio] 41.88 kg/m2 Catherine Idalmis Other [facility] Other 02-20-2023 09:45-0400 Body temperature 98.2 [degF] Catherine Idalmis Other [facility] Other 02-20-2023 09:45-0400 Body weight 110.68 kg Catherine Galindomond Other [facility] Other 02-20-2023 09:45-0400 Respiratory rate 18 /min Catherine Idalmis Other [facility] Other 02-20-2023 09:45-0400 SaO2% (BldA) [Mass fraction] 96 % Catherine Idalmis Other [facility] Other Encounters Encounter Date Encounter Type Care Provider Facility Start: 07-23-2023 Non-patient / Non-visit PHYSICIAN [facility] Physician [facility] Med OutPt Work Phone: Start: 07-23-2023 End: 07-25-2023 Evaluation and management of inpatient Munir Torrez Facility:[facility] Start: 07-23-2023 End: 07-25-2023 Evaluation and management of inpatient PHYSICIAN NO [facility] Work Phone: Start: 07-22-2023 End: 07-23-2023 Emergency department patient visit NO PCP NO PCP [facility] Start: 07-22-2023 ambulatory Munir Torrez F acility:[facility] Start: 07-18-2023 End: 07-18-2023 ambulatory [...] department patient visit NO PCP NO PCP [facility] Start: 02-20-2023 End: 02-20-2023 ambulatory Catherine Raygoza Other [facility] Other Start: 02-20-2023 Office outpatient ne w 20 minutes Catherine Raygoza [facility] Start: 08-10-2021 End: 08-10-[address] DOCTOR CAMERON Facility:[facility] Start: 01-26-2021 End: 01-26-[address] SERENITY SEAY Facility:[facility] Plan of Treatment Date Care Activity Detail Author Start: 07-25-2023 [facility] Start: 07-23-2023 Hospital admission [facility] Start: 07-18-2023 End: 07-18-2023 Patient encounter procedure 07/18/2023 9:10 AM EDT Consult [facility] [address] [place] [address] Priscilla Roque, [address] [place] [address] [facility] Cytology Cervical or vaginal smear or scraping study Pap Smear Pathology and Cytology Routine Well woman exam with routine gynecological exam Ordered: 06/21/2023 [facility] Work Phone: Comment on above: Ordered: 06/21/2023 Patient Education Depression, Ad ult (DC) [facility] DC Instructions [facility] Work Phone: Patient referral [facility] Work Phone: Payers Date Payer Category Payer Self-pay 2021 Medicaid [employer] [facility] [id number] 2021-Present [address] [address] [place] [address] [id number] 1994 Unknown [id number] 1994 Unknown [id number] [id number] 1994 Unknown [id number] [id number] 1994 Unknown [id number] [id number] 1994 Unknown [id number] [id number] 1994 Unknown [id number] [id number] 1994 Unknown [id number] [id number] 1959 Unknown [id number] 1959 Unknown [id number] Unknown [facility] [id number] Unknown [facility] [id number] Unknown [id number] [id number] Unknown [id number] [id number] Social History Date Type Detail Facility Unknown if ever smoked [facility] [email or web address] Other Sex Assigned At [facility] [email or web address] Other Tobacco smoking status AZIS Tobacco smoking consumption unknown [facility] Start: 1995 Sex Assigned At Not on file N [facility] Start: 07-23-2023 Tobacco smoking status NHIS Never smoked tobacco (finding) [facility] Start: 1995 Sex Assigned At Female F [facility] Goals Date Patient Goal Desired Activity /State Functional Status Date Assessment Result Facility 07-25-2023 Functional status Patient at Baseline [facility] Work Phone: Mental Status Date Assessment Result Facility 07-25-2023 Cognitive function Cognitive Sta tus Patient at Baseline [facility] Work Phone: Discharge summary 07-25-2023 Note Date & Type Note Facility 07-25-2023 Discharge summary Note Date/Time July 25, 2023 9:24am [facility] [address] [place] [address] Discharge Summary Signed Patient: [address] MR#: [id number] : 1995 Acct:[id number] Age/Sex: 28 / F Adm Date: 4 Loc: 1S Room: [address] [place] [address]: Munir Torrez MD Copies to: [...] was fired from her last job at [employer] and charged because of not checking IDs. She has a court appointment to attend on 07/26/23 for this. She got a new part-time job at [employer] but states this is not enough for [...] her 2 kids Employment: Part-time employee for [employer] Patient was treated with Pristiq. She tolerated [...] Instructions: Important Contact Information You can call [facility]patient [facility] at [phone] any time day or night if you have emergent questions or question regarding discharge instructions. If at any time you are feeling an increase inyour psychiatric symptoms, call your physician or behavioral healthcare provider. If any time you have thoughts of harming yourself or others contact one of the following: Call 8 (available 28/11) Crisis Text Line (available 28/11) text [facility] to [phone] [facility] Hope Line (available 8 a.m. Midnight) call [phone] ([phone]) Regular Diet No Activity Restrictions Instructions: Depression, Adult (DC), [facility] DC Instructions Prescriptions: New desvenlafaxine succinate 25 mg Tablet Extended Release 24 Hr 25 mg PO DAILY 30 Days Qty: 30 0RF Continued valacyclovir 500 mg tablet 500 mg PO DAILY Follow Up: Community, Health [Other] (Please contact for medical needs or concerns) [facility] [Outside] ( residential care facility manager: Monday07/26/23, you will receive a discharge [...] <Electronically signed by Ryan Quinones MD> 07/25/23 [facility] [facility] Work Phone: Progress note 07-24-2023 Note Date & Type Note Facility 07-24-2023 Progress note Note Date/Time July 24, 2023 11:54am [facility] [address] [place] [address] Psychiatry Progress Note Signed Patient: Bel Lane MR#: [id number] : 1995 Acct:[id number] Age/Sex: 28 / F Adm Date: 4 Loc: 1S Room: [address] [place] [address] Type : ADM IN Attending Dr: Munir [...] <Electronically signed by Ryan Quinones MD> 07/24/23 5[address] [facility] Work Phone: History and physical note 07-23-2023 Note Date & Type Note Facility 07-23-2023 History and physi tiesha note Note Date/Time July 23, 2023 1:17pm [facility] [address] [place] [address] Psychiatry H&P Signed Patient: Bel Lane MR#: [id number] : 1995 Acct:[id number] Age/Sex: 28 / F Adm Date: 4 Loc: Room: [address] [place] [address] Type: ADM IN Attending Dr: Munir Torrez [...] was fired from her last job at [employer] and charged because of not checking IDs. She has a court appointment to attend on 07/26/23 for this. She got a new part-time job at [employer] but states this is not enough for [...] her 2 kids Employment: Part-time employee for [employer] Review of symptoms: Constitutional: Denies chills and [...] HI, and [facility]: fair Judgment: fair [facility] Medical History (Updated 07/23/23 @ 12:20 [...] by Munir Torrez MD> 07/23/23 1317 [facility] Work Phone: History of Present illness [...] disorder 10/11/2017 Bipolar affective disorder, mixed (HCC) ([facility]/HCC) 10/11/2017 Resolved Ambulatory Problems Diagnosis Date Noted [...] nursing note reviewed. Exam conducted with a elevated motorman present. Vitals: Estimated body mass index is [...] of: DINA Kim documented in this encounter [facility] Healthcare Evaluation note 02-20-2023 Note Date [...] Suspected COVID-19 virus infection (ICD-10 - Z20.822) [facility] Other Evaluation note Note Date & Type Note Facility Evaluation note Diagnosis Well woman exam with routine gynecological exam Routine gynecological examination documented in this encounter [facility] Healthcare Evaluation note Note Date & Type Note Facility Evaluation note Diagnosis Onset Date Depression acute [facility] Work Phone: History general Narrative - Reported Note Date & Type Note Facility History general Narrative - Reported Type Medical History HSV 1 Surgical History uterine ablation Surgical History tubal ligation Surgical History tonsilectomy Hospitalization History See Above [facility] Other Hospital Discharge instructions Note Date & Type Note Facility Hospital Discharge instructions Additional Instructions Important Contact Information You can call [facility] at [phone] any time day or night if you have emergent questions or question regarding discharge instructions. If at any time you are feeling an increase in your psychiatric symptoms, call your physician or behavioral healthcare provider. If any time you have thoughts of harming yourself or others contact one of the following: Call (available 28/11) Crisis Text Line (available 28/11) text [facility] to [phone] [facility] Hope Line (available 8 a.m. Midnight) call [phone] ([phone]) Regular Diet No Activity Restrictions [facility] Work Phone: Summary Purpose Family History [...] and content) DATE CREATED AUTHOR 11/16/2021 [facility] pital DATE CREATED AUTHOR AUTHOR'S ORGANIZ ATION 07/19/2023 [facility] EPIC DATE CREATED AUTHOR AUTHOR'S ORGANIZ ATION 07/23/2023 [facility] DATE CREATED AUTHOR AUTHOR'S ORGANIZ ATION 08/23/2023 [facility] REASON FOR VISIT (unrecogniz [...] BE BASED ON THE PRIMARY CLINICAL RECORDS. [facility] [employer] provides no warranty or guarantee of the accuracy or completeness of information in this document.
[2023-08-29] MEDS: ENOXAPARIN SODIUM 40 MG/0.4 ML SYRINGE SUBQ (07:53)
[2023-08-29] MEDS: KETOROLAC TROMETHAMINE 30 MG/ML VIAL IVP (07:53)
--- NOTE | 2023-08-29 08:29 | P.GYNPN_ITS ---
CREATIVE DEVELOPER - PN: Subj Post-Op Interval history: doing well, denies n.v.d.f.c denies cp sob ct, ambulating well, pain controlled, denies flatus and bm Subjective: patient has no complaints, patient desires discharge, pain is well controlled and patient is tolerating oral intake Exam Constitutional Vital Signs, click to edit/add: Last Vital Signs Temp 98.2 F 08/29/23 04:02 Pulse 92 H 08/29/23 04:02 Resp 16 08/29/23 04:02 BP 127/67 08/29/23 04:02 Pulse Ox 95 08/29/23 04:02 O2 Del Method Room Air 08/29/23 04:02 O2 Flow Rate 1 08/28/23 16:35 Documenting provider has reviewed patient's vital signs: yes Common normals: no apparent distress Respiratory Common normals: clear to auscultation bilaterally Cardio Common normals: regular rate and regular rhythm GI Common normals: Normal to inspection, nondistended, normoactive bowel sounds present Extremity Common normals: no calf tenderness Results Labs Labs: Short CBC 08/29/23 Range/Units 05:28 WBC 12.7 H (4.0-11.0) 10^3/uL Hgb 9.8 L (12.0-16.0) g/dL Hct 30.8 L (36.0-48.0) % Plt Count 184 (150-450) 10^3/uL CREATIVE DEVELOPER - A/P Postoperative Procedures: Procedures Operation Date: 08/28/23 07:30 Actual Procedure Side Surgeon p Attempted laparoscopic davinci robot hysterectomy, converted to total abdominal hysterectomy, bilateral salpingectomy, cystoscopy Not Applicable Jonah Roque DO Postoperative day: 1 Postoperative status CREATIVE DEVELOPER: doing well Post-operative plan CREATIVE DEVELOPER: routine post-op care, advance diet and discharge (when passing gas precautions given, rx on chart fu 1wk) Fall Risk Details Castelan fall scale risk level: Low Fall Risk Current medications: Current Medications Al Hydroxide/Mg Hydroxide (Magnesium Hydroxide 2,400 Mg/10 Ml Oral.Susp) 2,400 mg PO ONCE ONE Stop: 08/29/23 09:01 Docusate Sodium (Docusate Sodium 100 Mg Capsule) 100 mg PO BID PRN PRN Reason: Constipation Enoxaparin Sodium (Enoxaparin Sodium 40 Mg/0.4 Ml Syringe) 40 mg SUBQ Q24H JOSÉ ANTONIO Last Admin: 08/29/23 07:53 Dose: 40 mg Lactated Ringer's (Lactated Ringers) 1,000 mls @ 125 mls/hr IV .Q8H JOSÉ ANTONIO Last Admin: 08/29/23 05:14 Dose: Not Given Promethazine HCl 25 mg/ Sodium (Chloride) 51 mls @ 204 mls/hr IV Q6H PRN PRN Reason: Nausea And Vomiting Ibuprofen (Ibuprofen 400 Mg Tablet) 800 mg PO Q6H PRN PRN Reason: Pain Ketorolac Tromethamine (Ketorolac Tromethamine 30 Mg/Ml Vial) 30 mg IVP Q6H PRN PRN Reason: Pain Last Admin: 08/29/23 07:53 Dose: 30 mg Ondansetron HCl (Ondansetron Pf 4 Mg/2 Ml Vial) 4 mg IV Q6H PRN PRN Reason: Nausea Last Admin: 08/28/23 16:53 Dose: 4 mg Oxycodone/Acetaminophen (Oxycodone Hcl/Acetaminophen 5mg/325mg) 1 tab PO Q6H PRN PRN Reason: Pain Oxycodone/Acetaminophen (Oxycodone Hcl/Acetaminophen 5mg/325mg) 2 tab PO Q6H PRN PRN Reason: Pain Last Admin: 08/28/23 23:08 Dose: 2 tab Simethicone (Simethicone 80 Mg Tab.Chew) 80 mg PO PCHS PRN PRN Reason: Abdominal Distention Temazepam (Temazepam 15 Mg Capsule) 30 mg PO QHS PRN PRN Reason: Sleep Time Spent With Patient Time: Total time spent is greater than 50% in coordination of care (as documented) at patient's floor/unit and/or counseling patient: Time with patient: less than 15 minutes Urinary Catheter Management Urinary Catheter Management Urethral: Cath placed during this visit: yes, but has since been removed by the nurse Removal date: 08/29/23 Removal time: 04:00
[2023-08-29] MEDS: MAGNESIUM HYDROXIDE 2,400 MG/10 ML ORAL.SUSP 2400 MG PO (09:10)
--- NOTE | 2023-08-29 16:08 | DS_ITS ---
DISCHARGE DATE: ??08/29/2023 PRIMARY DIAGNOSES: 1.? Dyspareunia. 2.? Dysmenorrhea. 3.? Pelvic pain. 4.? Abnormal uterine bleeding. PROCEDURE:? Attempted robotic assisted laparoscopic hysterectomy with bilateral salpingectomy with cystoscopy, converted to abdominal hysterectomy with bilateral salpingectomy with cystoscopy. HOSPITAL COURSE:? As expected.? Please see chart for full details.? LABORATORY DATA:? Please see chart. COMPLICATIONS:? None. DISCHARGE CONDITION:? Stable. CONSULTATION:? Anesthesia. DISCHARGE INSTRUCTIONS: 1.? Diet:? Regular. 2.? Medications: a.? Percocet 5/325 one to two p.o. every 4-6 hours p.r.n. pain. b.? Motrin 800 one p.o. every 8 hours p.r.n. pain. 3.? Followup in one week. Restrictions:? Pelvic rest for 6 weeks.? No heavy lifting.? May drive when pain free and no longer on narcotics. [facility]
--- NOTE | 2023-09-01 14:26 | CM.DCFOLLOWU ---
Person spoke with:Bel How are you feeling? Good How is your pain? No pain, pain medication working Did you understand your discharge instructions? Yes Do you have any questions about your discharge instructions? No Were you given any prescriptions at discharge? Yes Were you able to get your prescriptions filled? Yes Do you understand how to take your medications as ordered? Yes Do you have any questions about your follow up appointment and do you plan to keep your follow up appointment? No questions and plan on going to f/u Is there anything else that you would like to discuss? No Questions/Comments/Concerns/Other:
--- NOTE | 2023-09-15 13:57 | PM.ONB ---
Brief Operative Note Date of procedure: 08/28/23 Pre-op diagnosis general: aub, pelvic pain, dysmenorrhea, dyspareunia Post-op diagnosis: same as pre-op Procedure: NAME OF PROCEDURE: attempted robotic assisted laparoscopic hysterectomy with bilateral salpingectomy, converted to total abdominal hysterectomy with bilataral salpingectomy with cystoscopy PROCEDURE: The patient was taken back to the Operating Room where she was given general anesthesia without difficulty. She was then prepped and draped in the normal sterile fashion after being placed in a dorsal lithotomy position. A wet sponge stick was placed into the patient's vagina. Attention was then turned to the patient's abdomen, where a scalpel was used to make a small infraumbilical incision. The S retractors were then used to dissect the underlying layers until the fascia could be seen. The fascia was then grasped with Katelin clamps and tented up. A knife was then used to make a small incision to the fascia. The muscle was identified, at that time two sutures of #0 Vicryl on a GI needle was then used and placed through the fascia. the peritoneum was then identified and entered bluntly. The 10-4 Vy was then placed into the patient's abdomen. This was confirmed with direct visualization of the bowel, using the laparoscope. The patient's abdomen was then insufflated using approximately 4 liters of CO2 gas. Survey of the patient's abdomen demonstrated ovaries were normal in appearance as well as both tubes and uterus. A second and third rt and lt lateral robotic ports which were 8 mm in size, was then placed after the skin incision was made under direct visualization . the robotic arms were engaged. survey of patients abdomen was not conducive for robotic hysterectomy and that time it was decided to convert to an abdominal hysterectomy. A Pfannenstiel skin incision was then made 2 cm above the symphysis and pubis and carried down to underlying rectus fascia using a Bovie. The fascia was incised in the midline and extended bilaterally using Reyes scissors. Two Katelin clamps were placed on the superior aspect of the fascia and dissected off the underlying rectus muscle. The same was performed on the inferior aspect as well. The muscle was then in the midline. The peritoneum was identified and entered bluntly. Peritoneum was then extended superiorly and inferiorly with good visualization of the bladder. An RaimundoEznsqtki-O-Jszbmt retractor was placed into the patient's abdomen. The bowel was packed away with moist laparotomy sponges and the bladder blade was inserted. A Leahey tenaculum was placed on the patient's uterus and used for retraction. LigaSure apparatus was then used to come across the mesosalpingx from the fimbriated end to the uteroovarian ligament on the patient's right side which was then cauterized and transected. TThis wascarried down serially through the broad ligament and across the round ligament. The bladder flap was then created using the Metzenbaum scissors, and thebladder was easily dissected off the patient's lower uterine segment. A curved Mark was placed across the uterine artery on the right side which was clamped, transected, and suture ligated using #0 Monocryl. This was performed on the contralateral side as well. The bladder was further dissected and a Zeppelin clamp was then placed across the uterosacral and cardinal ligaments. This was transected and suture ligated using #0 Monocryl. This was performed on the contralateral side as well. The uterus was then amputated using Gab scissors. The patient's cuff was closed using #0 PDS in a running locked fashion and this was transfixed to the ipsilateral uterosacral and cardinal ligaments. Excellent hemostasis was assured. The patient's abdomen wascopiously irrigated using warm saline. Cystoscopy was performed. Bladder was intact. Efflux was noted from both ostia. Cystoscope was removed.After excellent hemostasis was assured, all instruments were removed from the patient's abdomen. The patient's peritoneum was closed using 3-0 Vicryl in a running fashion. The patient's fascia was closed using #0 Vicryl in a running fashion. The patient's skin was closed using 4-0 vicryl on a alecia needle. The patient tolerated the procedure well. Sponge, lap, and needle counts were correct times two. Patient taken to the Recovery Room in stable condition Anesthesia: ABEBA Surgeon: Jonah Roque Credit Collections Analyst: Carlee Garduno Estimated blood loss (mL): 200 Pathology: other (uterus cervix and tubes) Condition: stable Disposition: PACU Urinary Catheter Management Urinary Catheter Management Urethral: Cath placed during this visit: yes, but has since been removed by the nurse Removal date: 08/29/23 Removal time: 04:00
== END 2023-08-29 16:06 | disposition home or self-care (01) | DRG 513 ==
LOC: SURGOUT 08-29 06:12 → MS 08-29 06:12
PROVIDERS: Admitting Provider Obstetrics & Gynecology; Visit Provider Obstetrics & Gynecology
PROC: 0UT90ZZ Resection of Uterus, Open Approach (ICD-10-PCS; principal; 2023-08-28 07:30)
DX: N92.0 Excessive and frequent menstruation with regular cycle (principal); Z53.31 Laparoscopic surgical procedure converted to open procedure; R10.2 Pelvic and perineal pain; N94.10 Unspecified dyspareunia; N94.6 Dysmenorrhea, unspecified; F41.0 Panic disorder [episodic paroxysmal anxiety]; F32.A Depression, unspecified; Z87.891 Personal history of nicotine dependence; Z79.899 Other long term (current) drug therapy
CPT/HCPCS: 36415; 84702; 85025; 88307; 94667; 94668; 96365; 96372; 96375; J0131; J0690; J1100; J1170; J1650; J1885; J2250; J2371; J2405; J2704; J3010